=== PATIENT | male | born 1955 | race Two or more races ===

== ENCOUNTER 2017-05-09 19:44 | Emergency (ER) | payer OTHER ==
[~2017-05-09] VITALS: Ht 182.9 cm; Wt 104.3 kg
[~2017-05-09 19:44] MED LIST: ABILIFY5 MG; ALLOPURINOL100 MG PO; AMOXICILLIN875 MG PO; ASPIRIN EC81 MG PO; AUGMENTIN 875-1 EACH PO; CLONAZEPAM0.5 MG PO; COLCRYS0.6 MG PO; GLIPIZIDE XL10 MG PO; LANTUS100 UNIT/1 SUB-Q; LISINOPRIL10 MG PO; METFORMIN HCL1000 MG PO; NORCO 7.5-3251 EACH PO; OMEPRAZOLE20 MG PO; PREDNISONE10 MG PO; PSEUDOEPHEDRINE30 MG PO; VENLAFAXINE HC150 MG PO; VENLAFAXINE HCL75 M2 PO; VENTOLIN HFA18 GM INH; ZOCOR40 MG PO; ZOFRAN ODT4 MG SL
--- NOTE | 2017-05-09 22:44 | EKG ---
[facility] [address] [place], [place] [address] Signed Normal sinus rhythm Incomplete left bundle branch block ST elevation, consider inferolateral injury or acute infarct ACUTE [place] / STEMI Consider right ventricular involvement in acute inferior infarct Abnormal ECG No previous ECGs available Confirmed by MARINO SERRANO MD ([id number]) on 05/09/2017 10:44:02 PM Electronically Signed By: MARINO SERRANO MD 05/09/17 [id number] PATIENT NAME: BALDO WILDER Electrocardiogram DATE OF : 59 PHYSICIAN: MARINO SERRANO MD REPORT #: [id number] REPORT IS CONFIDENTIAL AND NOT TO BE RELEASED WITHOUT AUTHORIZATION
== END 2017-05-09 20:25 | disposition short-term general hospital (02) ==
LOC: ED 19:44
DX: I21.19 ST elevation (STEMI) myocardial infarction involving other coronary artery of inferior wall (principal); I10 Essential (primary) hypertension; K21.9 Gastro-esophageal reflux disease without esophagitis; E11.9 Type 2 diabetes mellitus without complications; Z79.1 Long term (current) use of non-steroidal anti-inflammatories (NSAID); Z79.82 Long term (current) use of aspirin; Z79.899 Other long term (current) drug therapy
CPT/HCPCS: 80053; 84484; 85025; 93005; 93010; 96374; 96375; 99285; J1644; J2270; J2405

== ENCOUNTER 2020-02-27 08:53 | Emergency (ER) | payer MEDICARE ==
[~2020-02-27] VITALS: Ht 182.9 cm; Wt 104.3 kg
--- OUTSIDE RECORDS SUMMARY | ~2020-02-27 | XMS | Encounter Summary ---
Demographics + + + | Address | [address] | | | [place] [address] | + + + | Home Phone | | + + + | Preferred Language | Unknown | + + + | Marital Status | | + + + | Mandaen Affiliation | Unknown | + + + | Race | Unknown | + + + | Ethnic Group | Unknown | + + + Author + + + | Author | [facility] | | | and [place] | + + + | Organization | [facility] | | | and [place] | + + + | Address | Unknown | + + + | Phone | Unavailable | + + + Care Team Providers + +------+ + | Care Import/Export Clerk Name | Role | Phone | + +------+ + | Luz Gaitan MD | PCP | | + +------+ + Encounter Details +--------+ + + + + | Date | Type | Department | Care Team | Description | +--------+ + + + + | 05/11/ | Orders Only | [facility] | Conversion | | | 2017 | | CONVERSION [address]P [address] | Transaction, | | | | | [address] | Provider Unknown | | | | | [place], [place] | [phone] | | | | | [phone] | | | | | | [phone] | | | +--------+ + + + + Social History + +-------+ +--------+------+ | Tobacco Use | Types | Packs/Day | Years | Date | | | | | Used | | + +-------+ +--------+------+ | Never Assessed | | | | | + +-------+ +--------+------+ + + + | Sex Assigned at | Date Recorded | | | | + + + | Not on file | | + + + documented as of this encounter Plan of Treatment Not on filedocumented as of this encounter Visit Diagnoses Not on filedocumented in this encounter"
--- OUTSIDE RECORDS SUMMARY | ~2020-02-27 | XMS | Clinical Summary ---
Demographics + + + | Address | [address] | | | [place] [address] | + + + | Home Phone | | + + + | Preferred Language | Unknown | + + + | Marital Status | | + + + | Congregation Affiliation | Unknown | + + + | Race | Unknown | + + + | Ethnic Group | Unknown | + + + Author + + + | Author | [facility] | | | and [place] | + + + | Organization | [facility] | | | and [place] | + + + | Address | Unknown | + + + | Phone | Unavailable | + + + Care Team Providers + +------+ + | Care Top Stop Attacher Name | Role | Phone | + +------+ + | Luz Gaitan MD | PCP | | + +------+ + Allergies No Known Allergies Medications + + + +---------+------+------+-------+ | Medication | Sig | Dispensed | Refills | Star | End | Statu | | | | | | t | Date | s | | | | | | Date | | | + + + +---------+------+------+-------+ | metFORMIN | Take 1,000 mg by | | 0 | 10/2 | | Activ | | (GLUCOPHAGE) 1000 MG | mouth 2 (two) times | | | 0/20 | | e | | tablet | daily with meals. | | | 17 | | | + + + +---------+------+------+-------+ | allopurinol | Take 100 mg by mouth | | 0 | 10/2 | | Activ | | (ZYLOPRIM) 100 mg | daily. | | | 0/20 | | e | | tablet | | | | 17 | | | + + + +---------+------+------+-------+ | lisinopril | Take 10 mg by mouth | | 0 | 10/2 | | Activ | | (PRINIVIL, ZESTRIL) | daily. | | | 0/20 | | e | | 10 mg tablet | | | | 17 | | | + + + +---------+------+------+-------+ | clonazePAM | Take 0.5 mg by mouth | | 0 | 10/2 | | Activ | | (KLONOPIN) 0.5 mg | daily. | | | 0/20 | | e | | tablet | | | | 17 | | | + + + +---------+------+------+-------+ | glipiZIDE | Take 20 mg by mouth | | 0 | 10/2 | | Activ | | (GLUCOTROL XL) 10 mg | 2 (two) times daily. | | | 0/20 | | e | | ER tablet | | | | 17 | | | + + + +---------+------+------+-------+ | omeprazole | Take 20 mg by mouth | | 0 | 10/2 | | Activ | | (PRILOSEC) 20 mg | 2 (two) times daily. | | | 0/20 | | e | | capsule | | | | 17 | | | + + + +---------+------+------+-------+ | venlafaxine | Take 150 mg by mouth | | 0 | 10/2 | | Activ | | (EFFEXOR XR) 150 mg | daily with | | | 0/20 | | e | | 24 hr capsule | breakfast. | | | 17 | | | + + + +---------+------+------+-------+ | venlafaxine | Take 75 mg by mouth | | 0 | 10/2 | | Activ | | (EFFEXOR XR) 75 mg | nightly. | | | 0/20 | | e | | 24 hr capsule | | | | 17 | | | + + + +---------+------+------+-------+ | aspirin 81 MG | Take 325 mg by mouth | | 0 | 10/2 | | Activ | | tablet | daily. | | | 0/20 | | e | | | | | | 17 | | | + + + +---------+------+------+-------+ | insulin glargine | Inject 32 Units into | | 0 | 10/2 | | Activ | | (LANTUS SOLOSTAR) | the skin 2 (two) | | | 0/20 | | e | | 100 units/mL | times daily before | | | 17 | | | | injection (pen) | meals. | | | | | | + + + +---------+------+------+-------+ | colchicine 0.6 mg | Take 0.6 mg by mouth | | 0 | 10/2 | | Activ | | tablet | daily. | | | 0/20 | | e | | | | | | 17 | | | + + + +---------+------+------+-------+ | loperamide | Take 2 mg by mouth 4 | | 0 | 10/2 | | Activ | | (IMODIUM) 2 mg | (four) times daily | | | 6/20 | | e | | capsule | as needed for | | | 17 | | | | | Diarrhea. 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 | 12/25/2017 | | nondalton heart without angina pectoris | | + + + | Palpitation | 12/25/2017 | + + + | Long-term insulin use in type 2 diabetes | 05/10/2017 | + + + | Essential hypertension | 05/10/2017 | + + + | Mixed hyperlipidemia | 05/10/2017 | + + + | S/P drug eluting coronary stent placement | 05/10/2017 | + + + | Hypertriglyceridemia | 05/10/2017 | + + + | Acute ST elevation myocardial infarction (STEMI) of inferior wall | 05/09/2017 | + + + Immunizations + + + + | Name | Administration Dates | Next Due | + + + + | INFLUENZA PF 18 Y OR | 06/23/2013 | | | >,QUADRIVALENT | | | | RECOMBINANT | | | + + + + | INFLUENZA TRIV | 04/04/2011, 08/12/2010, 09/16/2009, | | | W/PRES(PED/ADOL/ADUL | 05/28/2009, 05/12/2008, 06/27/2007, | | | T),MULTIDOSE | 05/23/2006, 05/25/2005, 05/23/2004, | | | | 07/24/1997 | | + + + + | PNEUMOCOCCAL | 03/20/2016, 07/24/1997 | | | POLYSACCHARIDE | | | | 23-VALENT (PPSV23) | | | + + + + | TD PF (5 LF TETANUS) | 07/24/1997 | | | (ADOL/ADULT) | | | + + + + | TDAP, (ADOL/ADULT) | 04/24/2012 | | + + + + Social History + +-------+ +--------+------+ | Tobacco Use | Types | Packs/Day | Years | Date | | | | | Used | | + +-------+ +--------+------+ | Never Smoker | | | | | + +-------+ +--------+------+ + + + | Sex Assigned at | Date Recorded | | | | + + + | Not on file | | + + + Last Filed Vital Signs + + + + + | Vital Sign | Reading | Time Taken | Comments | + + + + + | Blood Pressure | 128/75 | 12/25/2017 11:13 AM | | | | | PDT | | + + + + + | Pulse | 67 | 12/25/2017 11:13 AM | | | | | PDT | | + + + + + | Temperature | 36.7 C (98.1 F) | 05/11/2017 3:58 PM | | | | | PDT | | + + + + + | Respiratory Rate | 18 | 12/25/2017 11:13 AM | | | | | PDT | | + + + + + | Oxygen Saturation | - | - | | + + + + + | Inhaled Oxygen | - | - | | | Concentration | | | | + + + + + | Weight | 109.3 kg (241 lb) | 12/25/2017 11:13 AM | | | | | PDT | | + + + + + | Height | 182.9 cm (6') | 12/25/2017 11:13 AM | | | | | PDT | | + + + + + | Body Mass Index | 32.69 | 12/25/2017 11:13 AM | | | | | PDT | | + + + + + Plan of Treatment + + + + + | Health Maintenance | Due Date | Last | Comments | | | | Done | | + + + + + | Vaccine: Zoster (1 | | | | | of 2) | 7 | | | + + + + + | Vaccine: Influenza | | 06/23/20 | | | (#1) | 0 | 13, | | | | | 04/04/20 | | | | | 11, | | | | | 08/12/19 | | | | | 11, | | | | | Addition | | | | | al | | | | | history | | | | | exists | | + + + + + | Vaccine: | | 04/24/20 | | | Dtap/Tdap/Td (2 - | 2 | 12, | | | Td) | | 07/24/18 | | | | | 98 | | + + + + + Results Not on filefrom Last 3 Months"
--- OUTSIDE RECORDS SUMMARY | ~2020-02-27 | XMS | Encounter Summary ---
Demographics + + + | Address | [address] | | | [place] [address] | + + + | Home Phone | | + + + | Preferred Language | Unknown | + + + | Marital Status | | + + + | Mosque Affiliation | Unknown | + + + | Race | Unknown | + + + | Ethnic Group | Unknown | + + + Author + + + | Author | [facility] | | | and [place] | + + + | Organization | [facility] | | | and [place] | + + + | Address | Unknown | + + + | Phone | Unavailable | + + + Care Team Providers + +------+ + | Care Shift Production Supervisor Name | Role | Phone | + +------+ + PCP | Unavailable | + +------+ + Encounter Details +--------+ + + + + | Date | Type | Department | Care Team | Description | +--------+ + + + + | 11/29/ | Hospital | [facility] | Luz Gaitan | | | 2017 | Encounter | [facility] [address] | [address] | | | | | [address] | [employer] | | | | | [place] | [place] [facility] [place] | | | | | [address] | [address] | | | | | [phone] | | | +--------+ + + + [...] + + documented as of this encounter Progress Notes Manuela Coker - 11/29/2016 9:21 AM PDT PROCEDURE REPORT DATE OF PROCEDURE: 11/29/2016. ORDERING PHYSICIAN Luz Gaitan MD. DESCRIPTION OF PROCEDURE: Exercise stress test was performed utilizing the Pepe protocol. The patient exercised for 4 minutes 57 seconds achieving a maximum heart rate of 160 BPM, which represents 99% of max imum predicted heart rate. 7.0 METS were utilized at highest workload performed. Resting blood pressure 143/80 mmHg at peak exercise blood pressure increased to 250/112 mmH g. Resting heart rate 75 BPM. Resting electrocardiogram revealed normal sinus rhythm with evidence of left ventricular hy pertrophy. T-wave inversion in lateral leads and inferior leads. With exercise blood press ure increased to 250/112 mmHg, heart rate 160 BPM. Exercise EKG revealed sinus tachycardia with persistent ST depression and T-wave inversion in inferolate ral leads, unchanged from baseline nondiagnostic of ischemia due to baseline EKG changes the re are frequent episodes of premature ventricular beats and short run of nonsustained ventricular tachycardia, three beats suggestive of stress-induced ischemia. During the recovery phase, blood pressure decreased to 136/65 mmHg. Heart rate 108 BPM. E KG returned to baseline. The patient experienced no chest pain at peak exercise. CONCLUSION: 1. Poor functional aerobic capacity. Accelerated hypertension response to exercise. 2. Stage I resting hypertension. 3. Stress EKG nondiagnostic of ischemia due to baseline EKG changes. Nonsustained ventricu lar tachycardia at peak exercise suggestive of ischemia. 4. No chest pain induced by exercise. Myocardial perfusion image to follow. [facility] Signed and Approved by: MANUELA COKER MD 11/30/2016 16:43:00 documented in this encounter Plan of Treatment Not on filedocumented as of this encounter Procedures + +--------+ + + + | Procedure Name | Priori | Date/Time | Associated Diagnosis | Comments | | | ty | | | | + +--------+ + + + | NM MYOCARDIAL | Routin | 11/29/2016 | | Results for this | | PERFUSION MULT SPECT | e | 9:21 AM | | procedure are in the | | | | PDT | | results section. | + +--------+ + + + documented in this encounter Results NM Myocardial Perfusion Mult SPECT (11/29/2016 9:21 AM PDT) + + | Specimen | + + | | + + + + + | Narrative | Performed At | + + + | EXAMINATION: NM MYOCAR PERF SPECT MULTI STUDY HISTORY: | | | atypical cp, abn ekg COMPARISON STUDY: None TECHNIQUE: Pepe | | | protocol is performed and the patient achieved 85% maximal predicted | | | heart rate. Rest and stress phase imaging utilized 9.1 and 25.5 | | | millicuries technetium 99-M Myoview. FINDINGS: Cardiac wall | | | motion is normal.. The left ventricular ejection fraction is | | | calculated at 62%. The left ventricular end-diastolic volume measures | | | 72 mL. TID value is normal. Evaluation of radiotracer distribution | | | during stress and rest phase of the study demonstrates small a | | | reversible defect of the inferolateral base. IMPRESSION: 1. | | | Inferior lateral reversible defect at the base suggest reversible | | | ischemia. 2. Left ventricular ejection fraction is calculated at 62% | | | 3. The results of the study, were given to clerical staff to | | | communicate to the ordering clinician at the time of dictation. | | | JOB #: [id number] Digitally Released by: Miladys Escoto Read By: | | | MILADYS ESCOTO MD Date: 11/29/2016 12:59 | | + + + + + | Procedure Note | + + | Tr[place], Rad Results In - 08/02/2017 12:26 PM PST EXAMINATION: | | NM MYOCAR PERF SPECT MULTI STUDY | | | | HISTORY: | | atypical cp, abn ekg | | | | COMPARISON STUDY: | | None | | | | TECHNIQUE: | | Pepe protocol is performed and the patient achieved 85% maximal predicted | | heart rate. Rest and stress phase imaging utilized 9.1 and 25.5 millicuries | | technetium 99-M Myoview. | | | | FINDINGS: | | Cardiac wall motion is normal.. | | The left ventricular ejection fraction is calculated at 62%. | | The left ventricular end-diastolic volume measures 72 mL. | | TID value is normal. | | Evaluation of radiotracer distribution during stress and rest phase of the | | study demonstrates small a reversible defect of the inferolateral base. | | | | IMPRESSION: | | | | 1. Inferior lateral reversible defect at the base suggest reversible ischemia. | | 2. Left ventricular ejection fraction is calculated at 62% | | 3. The results of the study, were given to clerical staff to communicate to | | the ordering clinician at the time of dictation. | | | | | | JOB #: [id number] | | Digitally Released by: Miladys Escoto | | | | | | Read By: MILADYS ESCOTO MD | | Date: 11/29/2016 12:59 | | | + + documented in this encounter Visit Diagnoses Not on filedocumented in this encounter"
--- OUTSIDE RECORDS SUMMARY | ~2020-02-27 | XMS | Encounter Summary ---
Demographics + + + | Address | [address] | | | [place] [address] | + + + | Home Phone | | + + + | Preferred Language | Unknown | + + + | Marital Status | | + + + | Faith Affiliation | Unknown | + + + | Race | Unknown | + + + | Ethnic Group | Unknown | + + + Author + + + | Author | [facility] | | | and [place] | + + + | Organization | [facility] | | | and [place] | + + + | Address | Unknown | + + + | Phone | Unavailable | + + + Care Team Providers + +------+ + | Care Operational Trainer Name | Role | Phone | + +------+ + PCP | Unavailable | + +------+ + Encounter Details +--------+ + + + + | Date | Type | Department | Care Team | Description | +--------+ + + + + | 09/16/ | Hospital | [facility] | Neftaly Rankin, | | | 2011 | Encounter | [facility] | [place] [address] | | | | | [place] [address] | [place] | | | | | [place] | [id number] | | | | | [id number] | | | | | | [phone] | | | +--------+ + + + [...] + + documented as of this encounter ED Notes Neftaly Rankin MD - 09/16/2011 1:26 PM PSTDATE: 09/16/2011 CHIEF COMPLAINT: Chest pain and cough. HISTORY OF PRESENT ILLNESS: Yassine is a 56-year-old male who said he has had a bad cough fo r the last couple weeks that has been gradually getting worse. He has been having a lot of rib pain with it. He said he has had a little bit of shortness of breath. No nausea, no vom iting. No diarrhea or associat ed symptoms. However, he cannot stop coughing and he has dev eloped this kind of right midaxillary tray n, as well as some left-sided pain. It seems to b e getting worse. It has not been going away, so he c clay to the emergency department for fu rther evaluation. He has had no fever. He is coughing up purule nt material. He has had no chest pain or chest pressure. He said it is sometimes abdominal pain as we ll. PAST MEDICAL HISTORY: Significant for diabetes and hypertension. SOCIAL HISTORY: Does not smoke. REVIEW OF SYSTEMS: All systems reviewed and were negative except as in the HPI. PHYSICAL EXAMINATION GENERAL: Shows a 56-year-old male in no apparent distress. VITAL SIGNS: BP 154/77, pulse 78, respirations 16, temperature 98.8. Saturating 98% on room air. HEENT: Pupils equally round and reactive to light. Mucous membranes are moist. His nasal pa ssages are clear. NECK: Trachea is midline. CHEST: He has some crackles bilaterally in the lower lobes, which are very mild. Otherwise, his lungs are clear to auscultation bilaterally. No rales, no wheezes. CARDIOVASCULAR: Rate and rhythm are regular. ABDOMEN: Nontender, nondistended. EXTREMITIES: No edema. SKIN: No rash. EMERGENCY DEPARTMENT COURSE AND STUDIES: He had a CBC which was normal. Comprehensive metab olic panel was normal. A urine dip was negative. D-dimer was normal. He had an acute abdomi nal series which was normal. He continued to complain of pain. Therefore, an abdominal/pelv ic CT was done. The CT ended u p looking okay except he has a left lower lobe interstitial alveolar infiltrate compatible with pneum onia. ASSESSMENT: A 56-year-old male with pneumonia. He was given a prescription for some Levaqui n and Norc o. He was told to come back if he gets worse. Otherwise, to follow up with his [facility] doctor. DICTATED BY: Neftaly Rankin M.D. Emergency Medicine JOB #: [id number] EXT JOB #:[id number] EDITED: 09/18/2011 15:38 <Electronically Signed by Neftaly Rankin MD> 09/20/11 1404 documented in this encounter Plan of Treatment Not on filedocumented as of this encounter Procedures + +--------+ + + + | Procedure Name | Priori | Date/Time | Associated Diagnosis | Comments | | | ty | | | | + +--------+ + + + | D-DIMER | Routin | 09/16/2011 | | Results for this | | | e | 3:21 PM | | procedure are in the | | | | PST | | results section. | + +--------+ + + + | CHEMISTRY INDEX | Routin | 09/16/2011 | | Results for this | | | e | 2:30 PM | | procedure are in the | | | | PST | | results section. | + +--------+ + + + | CBC WITH | Routin | 09/16/2011 | | Results for this | | DIFFERENTIAL | e | 2:30 PM | | procedure are in the | | | | PST | | results section. | + +--------+ + + + | COMPREHENSIVE | Routin | 09/16/2011 | | Results for this | | METABOLIC PANEL | e | 2:30 PM | | procedure are in the | | | | PST | | results section. | + +--------+ + + + | XR ABDOMEN AP | | 09/16/2011 | | Results for this | | UPRIGHT KUB AND PA | | 1:26 PM | | procedure are in the | | CHEST | | PST | | results section. | + +--------+ + + + | CT ABDOMEN PELVIS W | | 09/16/2011 | | Results for this | | CONTRAST | | 1:26 PM | | procedure are in the | | | | PST | | results section. | + +--------+ + + + documented in this encounter Results D-Dimer (09/16/2011 3:21 PM PST) + + + + + + | Component | Value | Ref Range | Performed | Pathologist | | | | | At | Signature | + + + + + + | D-DIMER, | 0.24Comment: This | <0.50 ug/mlFEU | [facility] | | | QUANTITATIV | quantitative D-Dimer | | [facility] | | | E | assay has been evaluated | | MEDICAL | | | | for screening for | | CENTER - | | | | venous thrombotic | | LABORATORY | | | | disease, and may be | | | | | | useful in ruling out, | | | | | | but not ruling in | | | | | | disease. Values less | | | | | | than 0.50 ug/mL FEU | | | | | | (Fibrinogen Equivalent | | | | | | Units) have a negative | | | | | | predictive value of | | | | | | approximately 95% for | | | | | | ruling out large | | | | | | pulmonary emboli or | | | | | | proximal deep vein | | | | | | thrombosis. Distal DVT | | | | | | are not excluded. An | | | | | | elevated D-dimer can be | | | | | | present in patients | | | | | | with liver disease, | | | | | | , eclampsia, | | | | | | heart disease and some | | | | | | cancers among other | | | | | | conditions. The | | | | | | presence of rheumatoid | | | | | | factor at a level >50 | | | | | | IU/mL may falsely | | | | | | elevate the determined | | | | | | D-dimer levels. | | | | + + + + + + + + | Specimen | + + | | + + + + + + + | Performing | Address | City/State/Zipcode | Phone Number | | Organization | | | | + + + + + | [facility] | [address] | [place], [place] | [phone] | | [facility] | | [address] | | | - LABORATORY | | | | + + + + + | [facility] | [address] | [place], [place] | | | [facility] | | [address], [facility] | | | - LABORATORY | | | | + + + + + Chemistry Index (09/16/2011 2:30 PM PST) + + + + + + | Component | Value | Ref Range | Performed | Pathologist | | | | | At | Signature | + + + + + + | HEMOLYSIS | 1+Comment: AMYLASE, | | [facility] | | | INDEX | AMMONIA, CPK, IRON, K+, | | [facility] | | | | LDH, SGOT/AST, SGPT/ALT, | | MEDICAL | | | | and TOTAL BILIRUBIN | | CENTER - | | | | may be adversely | | LABORATORY | | | | affected by 1+ | | | | | | hemolysis. | | | | + + + + + + | LIPEMIA | 2+Comment: AMMONIA, | | [facility] | | | INDEX | LACTIC ACID, TOTAL | | [facility] | | | | PROTEIN and MAGNESIUM | | MEDICAL | | | | may be adversely | | CENTER - | | | | affected by 2+ lipemia. | | LABORATORY | | | | | | | | + + + + + + | ICTERIC | 1+Comment: LACTIC ACID | | [facility] | | | INDEX | and TRIGLYCERIDES may be | | [facility] | | | | adversely affected by | | MEDICAL | | | | 1+ bilirubin. | | CENTER - | | | | | | LABORATORY | | + + + + + + + + | Specimen | + + | | + + + + + + + | Performing | Address | City/State/Zipcode | Phone Number | | Organization | | | | + + + + + | [facility] | [address] | [place] | [phone] | | [facility] | | [address] | | | - LABORATORY | | | | + + + + + | [facility] | [address] | [place], [place] | | | [facility] | | [address] | | | - LABORATORY | | | | + + + + + Comprehensive Metabolic Panel (09/16/2011 2:30 PM PST) + + + + + + | Component | Value | Ref Range | Performed | Pathologist | | | | | At | Signature | + + + + + + | Glucose | 226 (H) | 70 - 109 mg/dL | [facility] | | | | | | [facility] | | | | | | MEDICAL | | | | | | CENTER - | | | | | | LABORATORY | | + + + + + + | Calcium | 9.3 | 8.3 - 10.5 | [facility] | | | | | mg/dL | [facility] | | | | | | MEDICAL | | | | | | CENTER - | | | | | | LABORATORY | | + + + + + + | Alkaline | 67 | 40 - 110 IU/L | [facility] | | | Phosphatase | | | [facility] | | | | | | MEDICAL | | | | | | CENTER - | | | | | | LABORATORY | | + + + + + + | AST | 53 (H) | 10 - 42 IU/L | [facility] | | | | | | [facility] | | | | | | MEDICAL | | | | | | CENTER - | | | | | | LABORATORY | | + + + + + + | ALT | 65 (H) | 6 - 45 IU/L | [facility] | | | | | | [facility] | | | | | | MEDICAL | | | | | | CENTER - | | | | | | LABORATORY | | + + + + + + | Bilirubin | 0.9 | 0.2 - 1.0 mg/dL | [facility] | | | Total | | | [facility] | | | | | | MEDICAL | | | | | | CENTER - | | | | | | LABORATORY | | + + + + + + | Total | 7.4 | 6.0 - 7.8 gm/dL | [facility] | | | Protein | | | [facility] | | | | | | MEDICAL | | | | | | CENTER - | | | | | | LABORATORY | | + + + + + + | Albumin | 4.1 | 3.2 - 5.0 gm/dL | [facility] | | | | | | [facility] | | | | | | MEDICAL | | | | | | CENTER - | | | | | | LABORATORY | | + + + + + + | BUN | 12 | 7 - 18 mg/dL | [facility] | | | | | | [facility] | | | | | | MEDICAL | | | | | | CENTER - | | | | | | LABORATORY | | + + + + + + | Creatinine | 0.96 | 0.60 - 1.30 | [facility] | | | | | mg/dL | [facility] | | | | | | MEDICAL | | | | | | CENTER - | | | | | | LABORATORY | | + + + + + + | Estimated | >60Comment: For | >60 mL/min/A | [facility] | | | GFR | -Americans, | | [facility] | | | | please multiply the | | MEDICAL | | | | result by 1.210 | | CENTER - | | | | This is an estimated | | LABORATORY | | | | GFR and is based on a | | | | | | standard adult | | | | | | body mass (A=1.73m2) and | | | | | | serum creatinine | | | | + + + + + + | BUN/Creatin | 12.5 | 12 - 20 | [facility] | | | ine Ratio | | | [facility] | | | | | | MEDICAL | | | | | | CENTER - | | | | | | LABORATORY | | + + + + + + | Na | 134 (L) | 136 - 149 mEq/L | [facility] | | | | | | [facility] | | | | | | MEDICAL | | | | | | CENTER - | | | | | | LABORATORY | | + + + + + + | K | 4.2 | 3.5 - 5.1 mEq/l | [facility] | | | | | | [facility] | | | | | | MEDICAL | | | | | | CENTER - | | | | | | LABORATORY | | + + + + + + | Cl | 100 | 98 - 109 mEq/l | [facility] | | | | | | [facility] | | | | | | MEDICAL | | | | | | CENTER - | | | | | | LABORATORY | | + + + + + + | CO2 | 25 | 24 - 31 mEq/L | [facility] | | | | | | [facility] | | | | | | MEDICAL | | | | | | CENTER - | | | | | | LABORATORY | | + + + + + + | Anion Gap | 13.2 | 6.0 - 17.0 | [facility] | | | | | | [facility] | | | | | | MEDICAL | | | | | | CENTER - | | | | | | LABORATORY | | + + + + + + + + | Specimen | + + | | + + + + + + + | Performing | Address | City/State/Zipcode | Phone Number | | Organization | | | | + + + + + | [facility] | [address] | [place] | [phone] | | [facility] | | [address] | | | - LABORATORY | | | | + + + + + | [facility] | [address] | [place], [place] | | | [facility] | | [address] | | | - LABORATORY | | | | + + + + + CBC with Differential (09/16/2011 2:30 PM PST) + +---------+ + + + | Component | Value | Ref Range | Performed | Pathologist | | | | | At | Signature | + +---------+ + + + | White Blood | 7.5 | 4.0 - 11.0 K/uL | [facility] | | | Cells | | | [facility] | | | | | | MEDICAL | | | | | | CENTER - | | | | | | LABORATORY | | + +---------+ + + + | Red Blood | 5.32 | 4.30 - 5.70 | [facility] | | | Cells | | M/uL | [facility] | | | | | | MEDICAL | | | | | | CENTER - | | | | | | LABORATORY | | + +---------+ + + + | Hemoglobin | 15.6 | 13.5 - 18.0 | [facility] | | | | | gm/dL | [facility] | | | | | | MEDICAL | | | | | | CENTER - | | | | | | LABORATORY | | + +---------+ + + + | Hematocrit | 46.4 | 40.0 - 51.0 % | [facility] | | | | | | [facility] | | | | | | MEDICAL | | | | | | CENTER - | | | | | | LABORATORY | | + +---------+ + + + | MCV | 87.2 | 83.0 - 101.0 fL | [facility] | | | | | | [facility] | | | | | | MEDICAL | | | | | | CENTER - | | | | | | LABORATORY | | + +---------+ + + + | MCH | 29.3 | 28.0 - 35.0 pg | [facility] | | | | | | [facility] | | | | | | MEDICAL | | | | | | CENTER - | | | | | | LABORATORY | | + +---------+ + + + | MCHC | 33.7 | 32.0 - 36.0 | [facility] | | | | | g/dL | [facility] | | | | | | MEDICAL | | | | | | CENTER - | | | | | | LABORATORY | | + +---------+ + + + | RDW-CV | 12.4 | <15.0 % | [facility] | | | | | | [facility] | | | | | | MEDICAL | | | | | | CENTER - | | | | | | LABORATORY | | + +---------+ + + + | Platelet | 181 | 140 - 440 K/uL | [facility] | | | Count | | | [facility] | | | | | | MEDICAL | | | | | | CENTER - | | | | | | LABORATORY | | + +---------+ + + + | % | 48.9 | 45 - 75 % | [facility] | | | Neutrophils | | | [facility] | | | | | | MEDICAL | | | | | | CENTER - | | | | | | LABORATORY | | + +---------+ + + + | % | 39.0 | 20 - 45 % | [facility] | | | Lymphocytes | | | [facility] | | | | | | MEDICAL | | | | | | CENTER - | | | | | | LABORATORY | | + +---------+ + + + | % Monocytes | 5.9 | 4 - 12 % | [facility] | | | | | | [facility] | | | | | | MEDICAL | | | | | | CENTER - | | | | | | LABORATORY | | + +---------+ + + + | % | 5.0 | 0 - 5 % | [facility] | | | Eosinophils | | | [facility] | | | | | | MEDICAL | | | | | | CENTER - | | | | | | LABORATORY | | + +---------+ + + + | % Basophils | 1.2 (H) | 0 - 1 % | [facility] | | | | | | [facility] | | | | | | MEDICAL | | | | | | CENTER - | | | | | | LABORATORY | | + +---------+ + + + | Absolute | 3.7 | 1.5 - 6.6 K/uL | [facility] | | | Neutrophils | | | [facility] | | | | | | MEDICAL | | | | | | CENTER - | | | | | | LABORATORY | | + +---------+ + + + | Absolute | 2.9 | 0.6 - 3.2 K/uL | [facility] | | | Lymphocytes | | | [facility] | | | | | | MEDICAL | | | | | | CENTER - | | | | | | LABORATORY | | + +---------+ + + + | Absolute | 0.4 | 0.0 - 1.0 K/uL | [facility] | | | Monocytes | | | [facility] | | | | | | MEDICAL | | | | | | CENTER - | | | | | | LABORATORY | | + +---------+ + + + | Absolute | 0.4 | 0.0 - 0.4 K/uL | [facility] | | | Eosinophils | | | [facility] | | | | | | MEDICAL | | | | | | CENTER - | | | | | | LABORATORY | | + +---------+ + + + | Absolute | 0.1 | 0.0 - 0.1 K/uL | [facility] | | | Basophils | | | [facility] | | | | | | MEDICAL | | | | | | CENTER - | | | | | | LABORATORY | | + +---------+ + + + + + | Specimen | + + | | + + + + + + + | Performing | Address | City/State/Zipcode | Phone Number | | Organization | | | | + + + + + | [facility] | [address] | [place], [place] | [phone] | | [facility] | | [address] | | | - LABORATORY | | | | + + + + + | [facility] | [address] | [place], [place] | | | [facility] | | [address], [facility] | | | - LABORATORY | | | | + + + + + XR Abd Supine and Upright w 1 Vw Chest (09/16/2011 1:26 PM PST) + + | Specimen | + + | | + + + + + | Narrative | Performed At | + + + | [facility] Diagnostic Imaging Department | [facility] | | [address] [facility] | [facility] | | TWO VIEW ABDOMEN WITH UPRIGHT | DIAG IMG | | CHEST CLINICAL HISTORY: RIB PAIN. FINDINGS: Heart size is | | | normal. Hilar regions and pulmonary vasculature are normal. No areas | | | of abno rmal lung density are seen. Intestinal gas and stool | | | pattern is normal. There is no sign of obstruction or free air. No | | | abnormal calcifications or bony abnormalities are present. | | | IMPRESSION: 1. NEGATIVE STUDY OF THE CHEST AND ABDOMEN. Dictated | | | Date/Time: 09/17/2011 12:30 Transcribed Date/Time: 09/17/2011 | | | 15:07 Automobile Service Station Manager: <Electronically Signed by Kennedy Millard | | | MD Wade> 09/17/11 8889 | | + + + + + | Procedure Note | + + | Triston, Rad Conversion - 08/29/2013 4:49 PM [facility] | | Diagnostic Imaging Department [address] [facility] | | TWO VIEW ABDOMEN WITH UPRIGHT CHEST CLINICAL HISTORY: | | RIB PAIN. FINDINGS: Heart size is normal. Hilar regions and pulmonary vasculature are | | normal. No areas of abnormal lung density are seen. Intestinal gas and stool pattern is | | normal. There is no sign of obstruction or free air. No abnormal calcifications or bony | | abnormalities are present. IMPRESSION: 1. NEGATIVE STUDY OF THE CHEST AND ABDOMEN. | | Dictated Date/Time: 09/17/2011 12:30Transcribed Date/Time: 09/17/2011 | | 15:07Transcriptionist: <Electronically Signed by Kennedy Olvera MD> 09/17/11 | | 2304 | |FINDINGS: Heart size is normal. Hilar regions and pulmonary vasculature are normal. No are as of abno | |rmal lung density are seen. | | | |Intestinal gas and stool pattern is normal. There is no sign of obstruction or free air. No abnormal | |calcifications or bony abnormalities are present. | | | |IMPRESSION: | |1. NEGATIVE STUDY OF THE CHEST AND ABDOMEN. | | | |Dictated Date/Time: 09/17/2011 12:30 | |Transcribed Date/Time: 09/17/2011 15:07 | |Automobile Service Station Manager: | |<Electronically Signed by Kennedy Olvera MD> 09/17/11 2304 | + + + +---------+ + + | Performing | Address | City/State/Zipcode | Phone Number | | Organization | | | | + +---------+ + + | [place] [facility] | | | | | [facility] | | | | + +---------+ + + CT Abdomen Pelvis w Contrast (09/16/2011 1:26 PM PST) + + | Specimen | + + | | + + + + + | Narrative | Performed At | + + + | [facility] Diagnostic Imaging Department | [facility] | | [address] [facility] | [facility] | | CT ABDOMEN AND PELVIS | DIAG IMG | | CLINICAL HISTORY: ABDOMINAL AND RIB PAIN. TECHNIQUE: Axial | | | images are obtained from lung bases to ischial tuberosities during the | | | uneventful a dministration of 100 mL of Isovue 370. No oral | | | contrast is used. FINDINGS: Patchy airspace density is seen in | | | the posterior left lower lobe. This is asymmetric from the right, | | | and without appearances suggesting infiltrative dislocation. | | | Liver shows normal appearances for a contrast-enhanced scan. | | | Gallbladder, pancreas, spleen and adren al glands appear normal. | | | Kidneys enhance symmetrically. There is no renal mass. No stones | | | are seen . Collecting systems are normal. Aorta and inferior | | | vena cava are normal. No retroperitoneal adeno reji or mass is | | | seen. The bowel is of normal caliber throughout. A normal appendix | | | is seen. Small bowel is unremarkable. In the pelvis, prostate | | | appears normal. Urinary bladder is unremarkable. Posterior facet | | | degenerati ve changes are seen in the lower lumbar region with no | | | acute bony abnormality. IMPRESSION: 1. LEFT LOWER LOBE | | | PNEUMONIC INFILTRATE. 2. OTHERWISE NEGATIVE CT OF THE ABDOMEN | | | AND PELVIS. Dictated Date/Time: 09/17/2011 11:04 Transcribed | | | Date/Time: 09/17/2011 11:27 Automobile Service Station Manager: | | | <Electronically Signed by Kennedy Olvera MD> 09/17/11 2304 | | + + + + + | Procedure Note | + + | Triston, Rad Conversion - 08/29/2013 4:48 PM [facility] | | Diagnostic Imaging Department [address] [place] [address] | | CT ABDOMEN AND PELVIS CLINICAL HISTORY: ABDOMINAL AND | | RIB PAIN. TECHNIQUE: Axial images are obtained from lung bases to ischial tuberosities | | during the uneventful administration of 100 mL of Isovue 370. No oral contrast is used. | | FINDINGS: Patchy airspace density is seen in the posterior left lower lobe. This is | | asymmetric from the right, and without appearances suggesting infiltrative dislocation. | | Liver shows normal appearances for a contrast-enhanced scan. Gallbladder, pancreas, | | spleen and adrenal glands appear normal. Kidneys enhance symmetrically. There is no | | renal mass. No stones are seen. Collecting systems are normal. Aorta and inferior | | vena cava are normal. No retroperitoneal adenopathy or mass is seen. The bowel is of | | normal caliber throughout. A normal appendix is seen. Small bowel is unremarkable. In | | the pelvis, prostate appears normal. Urinary bladder is unremarkable. Posterior facet | | degenerative changes are seen in the lower lumbar region with no acute bony abnormality. | | IMPRESSION: 1. LEFT LOWER LOBE PNEUMONIC INFILTRATE. 2. OTHERWISE NEGATIVE CT OF THE | | ABDOMEN AND PELVIS. Dictated Date/Time: 09/17/2011 11:04Transcribed Date/Time: | | 09/17/2011 11:27Transcriptionist: <Electronically Signed by Kennedy Olvera MD> | | 09/17/11 2304 | |. Collecting systems are normal. Aorta and inferior vena cava are normal. No retroperito eric adeno | |reji or mass is seen. The bowel is of normal caliber throughout. A normal appendix is se en. Small | | bowel is unremarkable. | | | |In the pelvis, prostate appears normal. Urinary bladder is unremarkable. Posterior facet degenerati | |ve changes are seen in the lower lumbar region with no acute bony abnormality. | | | |IMPRESSION: | |1. LEFT LOWER LOBE PNEUMONIC INFILTRATE. | | | |2. OTHERWISE NEGATIVE CT OF THE ABDOMEN AND PELVIS. | | | |Dictated Date/Time: 09/17/2011 11:04 | |Transcribed Date/Time: 09/17/2011 11:27 | |Automobile Service Station Manager: | |<Electronically Signed by eKnnedy Olvera MD> 09/17/11 2304 | + + + +---------+ + + | Performing | Address | City/State/Zipcode | Phone Number | | Organization | | | | + +---------+ + + | [facility] | | | | | [facility] | | | | + +---------+ + + documented in this encounter Visit Diagnoses Not on filedocumented in this encounter"
--- OUTSIDE RECORDS SUMMARY | ~2020-02-27 | XMS | Encounter Summary ---
Demographics + + + | Address | [address] | | | [place] [address] | + + + | Home Phone | | + + + | Preferred Language | Unknown | + + + | Marital Status | | + + + | Zoroastrian Affiliation | Unknown | + + + | Race | Unknown | + + + | Ethnic Group | Unknown | + + + Author + + + | Author | [facility] | | | and Yohannesana | + + + | Organization | [facility] | | | and [place]ann[place] | + + + | Address | Unknown | + + + | Phone | Unavailable | + + + Care Team Providers + +------+ + | Care Channel Installer Name | Role | Phone | + +------+ + PCP | Unavailable | + +------+ + Encounter Details +--------+ + + + + | Date | Type | Department | Care Team | Description | +--------+ + + + + | 05/09/ | Hospital | [facility] | Behzad Samuel | | | 2017 - | Encounter | [facility] | MD Carmen [address] | | | | | CARE [address]LO[address] [place], [place] | | | 05/11/ | | [facility] | [id number] | | | 2016 | | [place], [place] | | | | | | [address] | | | | | | [phone] | | | +--------+ + + + [...] + + documented as of this encounter Last Filed Vital Signs + + + + + | Vital Sign | Reading | Time Taken | Comments | + + + + + | Blood Pressure | 123/69 | 05/11/2017 3:58 PM | | | | | PDT | | + + + + + | Pulse | 61 | 05/11/2017 3:58 PM | | | | | PDT | | + + + + + | Temperature | 36.7 C (98.1 F) | 05/11/2017 3:58 PM | | | | | PDT | | + + + + + | Respiratory Rate | 16 | 05/11/2017 3:58 PM | | | | | PDT | | + + + + + | Oxygen Saturation | - | - | | + + + + + | Inhaled Oxygen | - | - | | | Concentration | | | | + + + + + | Weight | 109.8 kg (242 lb 1.1 | 05/11/2017 3:58 PM | | | | oz) | PDT | | + + + + + | Height | 182.9 cm (6') | 05/11/2017 3:58 PM | | | | | PDT | | + + + + + | Body Mass Index | 32.83 | 05/11/2017 3:58 PM | | | | | PDT | | + + + + + documented in this encounter Discharge Summaries Behzad Samuel MD - 05/11/2017 6:57 PM PDTFormatting of this note might be diffe rent from the original. Discharge Summaries by Behzad Samuel MD at 05/11/171856 Author: Behzad Samuel MD Service: Cardiology Author Type: Physician Filed: 05/17/172012 Date of Service: 05/11/171856 Status: Signed Associate Justice: Behzad Samuel MD (Physician) Related Notes: Original Note by Behzad Samuel MD (Physician) filed at 05/11/171920 [facility] Service: Cardiology Discharge Summary Date of Admission: 05/09/2017 Date of Discharge: 05/11/2017 Discharge Provider: Behzad Samuel MD Treatment Team: Admitting Provider: Behzad Samuel MD Discharge Diagnoses: Active Problems: Acute ST elevation myocardial infarction (STEMI) of inferior wall (HCC) Long-term insulin use in type 2 diabetes (HCC) Essential hypertension Mixed hyperlipidemia S/P drug eluting coronary stent placement Hypertriglyceridemia Resolved Problems: * No resolved hospital problems. * Final Diagnoses: 1. Acute inferior ST elevation myocardial infarction. 2. Single-vessel coronary artery disease with subtotal occlusion of the distal right gutierrez ry artery status post stenting of the distal right coronary artery and proximal right rn icu olateral artery using a 3 x 32 mm Synergy drug-eluting stent May 09, 2017. 3. Mild pulmonary hypertension. 4. Hypertension. 5. Hyperlipidemia. 6. Hypertriglyceridemia. 7. Diabetes mellitus type 2, insulin dependent, uncontrolled. Procedures: Cath 05/09/2017 IMPRESSION 1. Two-vessel coronary artery disease with mild disease of the proximal left anterior descending artery and severe disease of the distal right coronary artery. 2. Successful percutaneous transluminal coronary angioplasty and stenting of the distal right coronary artery and the proximal right posterolateral artery using a 3 x 32 mm Synergy drug-eluting stent, post dilated using a 3 noncompliant balloon. Significant Diagnostic Studies: Echo 05/10/2017 Impression 1. Overall left ventricular systolic function is normal with, an EF between 60 - 65 %. 2. There is mild concentric left ventricular hypertrophy. 3. The right ventricle is mildly enlarged with normal systolic function. 4. The left atrium is moderately dilated. 5. The right atrium is mildly enlarged. 6. Mild mitral regurgitation is present. 7. There is mild pulmonary hypertension. BRIEF HISTORY OF PRESENTATION AND HOSPITAL COURSE: Yassine Wilder is a 62 y.o. male who with a history of hypertension, hyperlipidemia, diabetes mellitus type 2, who was transferred from [facility] with inferior ST elevation myocardial infarction. The patient was taken emergently for cardiac ca theterization which showed single-vessel coronary artery disease with subtotal occlusion of the distal right coronary artery treated with a 3 x 32 mm Synergy drug-eluting stent. His ch est pain had resolved immediately after intervention. He was observed closely. His condition remained stable. His vital signs remained stable. On the day of discharge, he ambulated wit hout symptoms. He denied chest pain, shortness of breath, orthopnea, paroxysmal nocturnal dy spnea, palpitations, lightheadedness, presyncope, or syncope. Echocardiogram showed normal left ventricular systolic function with mild mitral regurgitat ion and mild pulmonary hypertension. His cholesterol panel showed high triglycerides at 702 and low HDL of 24. LDL could not be calculated. Coronary artery disease, inferior ST elevation myocardial infarction, status post stenting of the distal right coronary artery. The patient will need to be on aspirin 81 mg for life. Initially, the patient was started on prasugrel in the hospital. However, on discharge, the patient stated that he take his medications from the [place] pharmacy which will open on Sunday, and it was Sunday evening. Given concerns about getting the prasugrel, I have switched him to Plavix on discharge. I gave him a prescription for Plavix and instructed him to take 4 ta blets on Sunday and then on Sunday, to start taking Plavix 75 mg daily. I warned the patie nt the risk of acute stent thrombosis and even if he skips even 1 day of Plavix. He is agreeable to fill his Plavix tomorrow. The patient was also started on metoprolol, and he was continued on lisinopril. Hypertriglyceridemia/hyperlipidemia/dyslipidemia. The patient was on simvastatin at home at 40 mg. I switched him to atorvastatin 80 mg. Given the high triglycerides, I also started him on fenofibrate. I explained to the patient the risk of muscle pains and muscle weakness, especially with the combination of fenofibra te and atorvastatin; and I advised him to call us immediately if he experienced these sympto ms. He will need a repeat fasting lipid panel and complete metabolic profile in 3 months. The patient will need to be referred for cardiac rehabilitation as an outpatient. We will see the patient in our clinic in 1 week. We advised him to see his primary care [facility] within 1 week. The patient overall discharged home in stable condition. Past medical history Hypertension Hyperlipidemia Diabetes mellitus type II, insulin-dependent Gastroesophageal reflux disease. No past surgical history on file. No Known Allergies Prescriptions Prior to Admission Medication Sig Dispense Refill Last Dose albuterol (PROVENTIL HFA;VENTOLIN HFA) 108 (90 Base) MCG/ACT inhaler Inhale 2 puffs int o the lungs every 6 (six) hours as needed for Wheezing. allopurinol (ZYLOPRIM) 100 MG tablet Take 300 mg by mouth daily. aspirin 81 MG tablet Take 81 mg by mouth daily. clonazePAM (KLONOPIN) 0.5 MG tablet Take 0.5 mg by mouth daily. colchicine 0.6 MG tablet Take 0.6 mg by mouth daily. glipiZIDE (GLUCOTROL) 10 MG 24 hr tablet Take 20 mg by mouth 2 (two) times daily. HYDROcodone-acetaminophen (NORCO) 7.5-325 MG per tablet Take 1-2 tablets by mouth every 6 (six) hours as needed for Pain. insulin glargine (LANTUS) 100 UNIT/ML injection Inject 32 Units into the skin 2 (two) t imes daily before meals. lisinopril (ZESTRIL) 10 MG tablet Take 10 mg by mouth daily. metFORMIN (GLUCOPHAGE) 1000 MG tablet Take 1,000 mg by mouth 2 (two) times daily with m eals. omeprazole (PRILOSEC) 20 MG capsule Take 20 mg by mouth every morning before breakfast. venlafaxine (EFFEXOR-XR) 150 MG 24 hr capsule Take 150 mg by mouth daily with breakfast . venlafaxine (EFFEXOR-XR) 75 MG 24 hr capsule Take 75 mg by mouth nightly. DISCHARGE EXAM Vital Signs: BP 123/69 (BP Location: Right forearm) | Pulse 61 | Temp 98.1 F (36.7 C) (Oral) | Re sp 16 | Ht 1.829 m (6') | Wt 109.8 kg (242 lb 1 oz) | SpO2 100% | BMI 32.83 kg/m Temp: [97.4 F (36.3 C)-98.5 F (36.9 C)] 98.1 F (36.7 C) (05/11 1556) BP: (116-129)/(61-72) 123/69 (05/11 1556) Heart Rate: [61-67] 61 (05/11 1556) Resp: [16-19] 16 (05/11 1556) SpO2: [98 %-100 %] 100 % (05/11 1556) Weight: [109.8 kg (242 lb 1 oz)] 109.8 kg (242 lb 1 oz) (05/11 356) Physical Exam Constitutional: He is oriented to person, place, and time. He appears well-developed and we ll-nourished. No distress. HENT: Head: Normocephalic and atraumatic. Eyes: No scleral icterus. Neck: Neck supple. No JVD present. Carotid bruit is not present. Cardiovascular: Normal rate, regular rhythm, S1 normal and S2 normal. Exam reveals no gall op and no friction rub. No murmur heard. Pulmonary/Chest: Effort normal. No stridor. No respiratory distress. He has no wheezes. He has no rales. He exhibits no tenderness. Abdomina/Gl: Soft. Bowel sounds are normal. There is no tenderness. Musculoskeletal: He exhibits no edema or tenderness. Neurological: He is alert and oriented to person, place, and time. No cranial nerve deficit . Skin: Skin is warm and dry. No rash noted. He is not diaphoretic. No erythema. No pallor. Psychiatric: He has a normal mood and affect. DATA CBC: Lab Results Component Value Date WBC 10.65 05/11/2017 RBC 5.28 05/11/2017 HGB 15.2 05/11/2017 HCT 44.4 05/11/2017 MCV 84.0 05/11/2017 MCH 28.7 05/11/2017 MCHC 34.2 05/11/2017 RDW 41.1 05/11/2017 PLT 132 (L) 05/11/2017 MPV 10.2 05/11/2017 DIFFTYPE AUTOMATED 05/11/2017 Last 3 Troponin: Lab Results Component Value Date TROPONINI 27.7 (HH) 05/10/2017 TROPONINI 32.4 (HH) 05/10/2017 TROPONINI 70 (HH) 05/10/2017 CPK: Lab Results Component Value Date CKTOTAL 514 (H) 05/11/2017 CKMB: Lab Results Component Value Date CKMB 52.8 (H) 05/10/2017 Disposition: Home Condition: Stable Code Status: Full Code No discharge procedures on file. Follow up: Luz Gaitan MD [phone] In 1 week PATTI Johnson [address] [place] [address] In 1 week Medication List START taking these medications atorvastatin 80 MG tablet QTY: 30 tablet Refills: 11 Commonly known as: LIPITOR Take 1 tablet by mouth nightly. * clopidogrel 75 MG tablet QTY: 4 tablet Refills: 0 Commonly known as: PLAVIX Take 4 tablets by mouth once for 1 dose. Start taking on: 05/12/2017 * clopidogrel 75 MG tablet QTY: 30 tablet Refills: 11 Commonly known as: PLAVIX Take 1 tablet by mouth daily. Start taking on: 05/13/2017 fenofibrate 54 MG tablet QTY: 30 tablet Refills: 11 Take 1 tablet by mouth daily. Start taking on: 05/12/2017 metoprolol 25 MG tablet QTY: 30 tablet Refills: 11 Commonly known as: LOPRESSOR Take 0.5 tablets by mouth 2 (two) times daily. nitroGLYCERIN 0.4 MG SL tablet QTY: 90 tablet Refills: 12 Commonly known as: NITROSTAT Place 1 tablet under the tongue every 5 (five) minutes as needed for Chest pain. * This list has 2 medication(s) that are the same as other medications prescribed for you. Read the directions carefully, and ask your doctor or other care provider to review them wit h you. CONTINUE taking these medications albuterol 108 (90 Base) MCG/ACT inhaler Refills: 0 Commonly known as: PROVENTIL HFA;VENTOLIN HFA allopurinol 100 MG tablet Refills: 0 Commonly known as: ZYLOPRIM aspirin 81 MG tablet Refills: 0 clonazePAM 0.5 MG tablet Refills: 0 Commonly known as: KlonoPIN colchicine 0.6 MG tablet Refills: 0 glipiZIDE 10 MG 24 hr tablet Refills: 0 Commonly known as: GLUCOTROL HYDROcodone-acetaminophen 7.5-325 MG per tablet Refills: 0 Commonly known as: NORCO insulin glargine 100 UNIT/ML injection Refills: 0 Commonly known as: LANTUS lisinopril 10 MG tablet Refills: 0 Commonly known as: ZESTRIL metFORMIN 1000 MG tablet Refills: 0 Commonly known as: GLUCOPHAGE omeprazole 20 MG capsule Refills: 0 Commonly known as: PRILOSEC * venlafaxine 150 MG 24 hr capsule Refills: 0 Commonly known as: EFFEXOR-XR * venlafaxine 75 MG 24 hr capsule Refills: 0 Commonly known as: EFFEXOR-XR * This list has 2 medication(s) that are the same as other medications prescribed for you. Read the directions carefully, and ask your doctor or other care provider to review them wit h you. You might also be taking other medications not listed above. If you have questions about an y of your other medications, talk to the person who prescribed them or your Primary Care Pro vider. STOP taking these medications simvastatin 40 MG tablet Commonly known as: ZOCOR Where to Get Your Medications You can get these medications from any pharmacy Bring a paper prescription for each of these medications atorvastatin 80 MG tablet clopidogrel 75 MG tablet clopidogrel 75 MG tablet fenofibrate 54 MG tablet metoprolol 25 MG tablet nitroGLYCERIN 0.4 MG SL tablet Discharge took 40 minutes, to include final examination, discussion of admission, and prepa ration of prescriptions, instructions for on-going care, follow-up and documentation of disc harge summary. Behzad Samuel MD 05/11/2017 documented i n this encounter Medications at Time of Discharge + + + +---------+ + + | Medication | Sig | Dispensed | Refills | Start | End Date | | | | | | Date | | + + + +---------+ + + | allopurinol | Take 100 mg by mouth | | 0 | 05/11/20 | | | (ZYLOPRIM) 100 mg | daily. | | | 17 | | | tablet | | | | | | + + + +---------+ + + | aspirin 81 MG | Take 325 mg by mouth | | 0 | 10/20/20 | | | tablet | daily. | | | 17 | | + + + +---------+ + + | clonazePAM | Take 0.5 mg by mouth | | 0 | 10/20/20 | | | (KLONOPIN) 0.5 mg | daily. | | | 17 | | | tablet | | | | | | + + + +---------+ + + | colchicine 0.6 mg | Take 0.6 mg by mouth | | 0 | 10/20/20 | | | tablet | daily. | | | 17 | | + + + +---------+ + + | glipiZIDE | Take 20 mg by mouth | | 0 | 10/20/20 | | | (GLUCOTROL XL) 10 mg | 2 (two) times daily. | | | 17 | | | ER tablet | | | | | | + + + +---------+ + + | insulin glargine | Inject 32 Units into | | 0 | 10/20/20 | | | (LANTUS SOLOSTAR) | the skin 2 (two) | | | 17 | | | 100 units/mL | times daily before | | | | | | injection (pen) | meals. | | | | | + + + +---------+ + + | lisinopril | Take 10 mg by mouth | | 0 | 10/20/20 | | | (PRINIVIL, ZESTRIL) | daily. | | | 17 | | | 10 mg tablet | | | | | | + + + +---------+ + + | metFORMIN | Take 1,000 mg by | | 0 | 10/20/20 | | | (GLUCOPHAGE) 1000 MG | mouth 2 (two) times | | | 17 | | | tablet | daily with meals. | | | | | + + + +---------+ + + | omeprazole | Take 20 mg by mouth | | 0 | 05/11/20 | | | (PRILOSEC) 20 mg | 2 (two) times daily. | | | 17 | | | capsule | | | | | | + + + +---------+ + + | venlafaxine | Take 150 mg by mouth | | 0 | 05/11/20 | | | (EFFEXOR XR) 150 mg | daily with | | | 17 | | | 24 hr capsule | breakfast. | | | | | + + + +---------+ + + | venlafaxine | Take 75 mg by mouth | | 0 | 05/11/20 | | | (EFFEXOR XR) 75 mg | nightly. | | | 17 | | | 24 hr capsule | | | | | | + + + +---------+ + + | atorvaSTATin | Take 1 tablet by | 30 | 11 | 05/11/20 | | | (LIPITOR) 80 MG | mouth nightly. | tablet | | 17 | 8 | | tablet | | | | | | + + + +---------+ + + | clopidogrel | Take 4 tablets by | 4 | 0 | 05/12/20 | | | (PLAVIX) 75 mg | mouth once for 1 | tablet | | 17 | 7 | | tablet | dose. | | | | | + + + +---------+ + + | clopidogrel | Take 1 tablet by | 30 | 11 | 05/13/20 | | | (PLAVIX) 75 mg | mouth daily. | tablet | | 17 | 8 | | tablet | | | | | | + + + +---------+ + + | fenofibrate | Take 1 tablet by | 30 | 11 | 05/12/20 | | | (LOFIBRA) 54 mg | mouth daily. | tablet | | 17 | 8 | | tablet | | | | | | + + + +---------+ + + | metoprolol | Take 0.5 tablets by | 30 | 11 | 05/11/20 | | | tartrate (LOPRESSOR) | mouth 2 (two) times | tablet | | 17 | 8 | | 25 mg tablet | daily. | | | | | + + + +---------+ + + | nitroglycerin | Place 1 tablet under | 90 | 12 | 05/11/20 | | | (NITROSTAT) 0.4 mg | the tongue every 5 | tablet | | 17 | 8 | | SL tablet | (five) minutes as | | | | | | | needed for Chest | | | | | | | pain. | | | | | + + + +---------+ + + documented as of this encounter Progress Notes Conversion Transaction, Provider Unknown - 05/11/2017 7:21 PM PDTFormatting of this note m ight be different from the original. Nurse Progress Note by Erni Frey RN at 05/11/171920 Author: Erin Frey RN Service: (none) Author Type: Registered Nurse Filed: 05/11/171921 Date of Service: 05/11/171920 Status: Signed Associate Justice: Erin Frey RN (Registered Nurse) Pt discharged home with family via private car. Hashim in to see pt prior to discharge. Bot h MD and nursing went over Rx with pt and family. All instructions given to pt and family in both verbal and written format. IVs removed, tips intact, bandages applied. Radial cath sit e c/d/i with no signs of bleeding or hematoma. Pt refused to be wheeled down and walked down with family. Rx sent with pt as well as stent info card. Erin Frey RN onver geraldine Transaction, Provider Unknown - 05/11/2017 6:17 PM PDT Nurse Progress Note by Erin Frey RN at 05/11/171816 Author: Erin Frey RN Service: (none) Author Type: Registered Nurse Filed: 05/11/171817 Date of Service: 05/11/171816 Status: Signed Associate Justice: Erin Frey RN (Registered Nurse) Home medications from [facility] ppwk placed into [facility] medications per Dr. Ed mason. Erin Frey RN onver geraldine Transaction, Provider Unknown - 05/11/2017 6:01 PM PDT Nurse Progress Note by Tennille Victor RN at 05/11/171800 Author: Tennille Victor RN Service: (none) Author Type: Registered Nurse Filed: 05/11/171802 Date of Service: 05/11/171800 Status: Signed Associate Justice: Tennille Victor RN (Registered Nurse) VSS. R radial site soft and intact. NSR on tele. Has not requiring pain medication today. H ourly rounding otherwise uneventful. TENNILLE VICTOR RN 05/11/17 6:03 PM onver geraldine Transaction, Provider Unknown - 05/11/2017 3:26 PM PDT Case Management by Tonie Villa RN at 05/11/176 Author: Tonie Villa RN Service: (none) Author Type: Registered Nurse Filed: 05/11/17 0535 Date of Service: 05/11/176 Status: Addendum Associate Justice: Tonie Villa RN (Registered Nurse) Related Notes: Original Note by Tonie Villa RN (Registered Nurse) filed at 05/11/17 1 535 Discharge Planning: pt may d/c home with anticoagulation Effient, if so CM can take script to Rx pharmacy as Rx has 30 day free coupon for medication. onver geraldine Transaction, Provider Unknown - 05/11/2017 6:43 AM PDT Nurse Progress Note by Darion Anderson RN at 05/11/1743 Author: Darion Anderson RN Service: (none) Author Type: Registered Nurse Filed: 05/11/1743 Date of Service: 05/11/1743 Status: Signed Associate Justice: Darion Anderson RN (Registered Nurse) No acute events during shift, 24hr chart check complete. onver geraldine Transaction, Provider Unknown - 05/10/2017 5:19 PM PDT Nurse Progress Note by Ricardo Wilson RN at 05/10/171718 Author: Ricardo Wilson RN Service: (none) Author Type: Registered Nurse Filed: 05/10/171719 Date of Service: 05/10/171718 Status: Signed Associate Justice: Ricardo Wilson RN (Registered Nurse) No adverse events during shift. Pt denies any chest pain. Right radial site is clean/dry/in tact. Ricardo Wilson RN 05/10/17 onver geraldine Transaction, Provider Unknown - 05/10/2017 3:36 PM PDT Case Management by Tonie Villa RN at 05/10/17 1531 Author: Tonie Villa RN Service: (none) Author Type: Registered Nurse Filed: 05/10/17 1541 Date of Service: 05/10/17 1536 Status: Signed Associate Justice: Tonie Villa RN (Registered Nurse) 05/10/17 1531 Discharge Planning Evaluation Admitting Diagnosis inferior stemi Readmission No Living Arrangements Spouse/significant other (pt resides with spouse Jocelyne [phone]) Support Systems Spouse/significant other Type of Residence Private residence Steps to enter 2 Bathrooms on 1st Floor 1-Full Independent with ADL's Yes Independent with Mobility Yes Home Care Services No Caregiver after Discharge No Mental Status Oriented Anticipated Discharge Plan Post Acute Care Needs None at this time Plan communicated to patient/family Yes Resources Financial concerns No Transportation issues No Patient/Family concerns [place] [facility] not listed Previous home health equipment No Vascular access device No Ostomy/Drains/Appliances No Anticipated Disposition Facility Type Home CM met with patient and discussed discharge planning, Pt is a 62 y.o., male independent wit h ADL's and ambulation. Pt resides in [place] with spouse Jocelyne [phone]. Pt is on russell m air, no non healing wounds, using aspirin for anticoagulation, no out pt services. No pt d /c needs found at this time. Patient's PCP is: Luz Gaitan Patient's insurance: [employer] Coverage concerns: no Medication coverage/concerns: no Rx Bedside Delivery: Community resources utilized / needed: no Assistance in transportation: pt spouse to transport pt home Identification of any specific education / training: TBD Barriers to Discharge / Alternative housing needed: no Anticipated DCP: pt to d/c home with spouse Tonie Villa RN CM Behzad Lin MD - 05/10/2017 10:50 AM PDTFormatting of this note might be different fr om the original. Progress Notes by Behzad Samuel MD at 05/10/17 1050 Author: Behzad Samuel MD Service: Cardiology Author Type: Physician Filed: 05/10/17 1106 Date of Service: 05/10/17 1050 Status: Signed Associate Justice: Behzad Samuel MD (Physician) [facility] Service: Cardiology Progress Note Hospital Day: LOS: 0 days Post-Op Day: * No surgery found * SUBJECTIVE Patient Summary: Events Overnight: Feels better. Denies chest pain, SOB, lightheadedness.. Ambulating. Tele: sinus rhythm. No significant arrhythmias. Scheduled Medications allopurinol 300 mg Oral Daily aspirin 81 mg Oral Daily with breakfast atorvastatin 80 mg Oral Nightly clonazePAM 0.5 mg Oral Daily colchicine 0.6 mg Oral Daily glipiZIDE 10 mg Oral QAM AC insulin glargine 32 Units Subcutaneous BID insulin lispro (human) 0-3 Units Subcutaneous Nightly insulin lispro (human) 0-6 Units Subcutaneous TID AC lisinopril 10 mg Oral Daily metoprolol 12.5 mg Oral BID pantoprazole 40 mg Oral QAM AC prasugrel 10 mg Oral Daily venlafaxine 150 mg Oral Daily with breakfast venlafaxine 75 mg Oral after dinner Continuous Infusions dextrose PRN Medications acetaminophen OR acetaminophen, albuterol, atropine sulfate, dextrose, dextrose, dextro se, glucagon, glucagon, hydrALAZINE, HYDROcodone-acetaminophen, magnesium sulfate OR mag nesium sulfate OR magnesium sulfate, nitroGLYCERIN, ondansetron OR ondansetron, poly ethylene glycol, potassium OR potassium OR potassium OR potassium chloride OR* * potassium chloride OR potassium chloride, sodium chloride (bolus), zolpidem OBJECTIVE Vital Signs: BP 115/62 (BP Location: Right upper arm) | Pulse 57 | Temp 98 F (36.7 C) (Oral) | Re sp 16 | Ht 1.829 m (6') | Wt 104.3 kg (230 lb) | SpO2 100% | BMI 31.19 kg/m Temp: [97.8 F (36.6 C)-98 F (36.7 C)] 98 F (36.7 C) (05/10 858) BP: (115-146)/(62-79) 115/62 (05/10 858) Heart Rate: [57-83] 57 (05/10 858) Resp: [15-27] 16 (05/10 858) SpO2: [96 %-100 %] 100 % (05/10 858) Height: [182.9 cm (6')] 182.9 cm (6') (05/09 2122) Weight: [104.3 kg (230 lb)] 104.3 kg (230 lb) (05/09 2122) BMI (Calculated): [31.3] 31.3 (05/09 2122) Patient Vitals for the past 24 hrs: BP Temp Temp src Pulse Resp SpO2 Height Weight 05/10/17 0858 115/62 98 F (36.7 C) Oral 57 16 100 % - - 05/10/17 0300 131/79 98 F (36.7 C) Oral 66 17 96 % - - 05/09/172317 128/63 97.8 F (36.6 C) Oral 72 17 99 % - - 05/09/172139 127/77 - - 83 18 98 % - - 05/09/172124 124/75 - - 80 24 98 % - - 05/09/172121 - - - - - - 1.829 m (6') 104.3 kg (230 lb) 05/09/172119 137/65 - - 83 17 98 % - - 05/09/172114 135/75 - - 81 27 96 % - - 05/09/172109 131/73 - - 69 17 97 % - - 05/09/172105 118/77 - - 70 17 98 % - - 05/09/172104 146/77 - - 69 15 100 % - - General appearance: alert, appears stated age, cooperative and no distress Head: Normocephalic, without obvious abnormality, atraumatic Eyes: negative findings: lids and lashes normal, conjunctivae and sclerae normal and cornea s clear Nose: no discharge Neck: no carotid bruit, no JVD, supple, symmetrical, trachea midline and thyroid not enlarg ed, symmetric, no tenderness/mass/nodules Lungs: clear to auscultation bilaterally Chest wall: no tenderness Heart: regular rate and rhythm, S1, S2 normal, no murmur, click, rub or gallop Abdomen: soft, non-tender; bowel sounds normal; no masses, no organomegaly Musculoskeletal: There is no redness, warmth, or swelling of the joints. Full range of mo tion noted. Motor strength is 5 out of 5 all extremities bilaterally. Tone is normal. Extremities: extremities normal, atraumatic, no cyanosis or edema Pulses: Radial pulses +2 bilateral. right radial access site stable without hematoma. Skin: Skin color, texture, turgor normal. No rashes or lesions Neurologic: Grossly normal DATA CBC: Lab Results Component Value Date WBC 8.55 05/09/2017 RBC 5.24 05/09/2017 HGB 15.1 05/09/2017 HCT 43.7 05/09/2017 MCV 83.5 05/09/2017 MCH 28.8 05/09/2017 MCHC 34.5 05/09/2017 RDW 41.6 05/09/2017 PLT 137 (L) 05/09/2017 MPV 9.5 05/09/2017 DIFFTYPE AUTOMATED 05/09/2017 CMP: Lab Results Component Value Date NA 139 05/10/2017 K 3.9 05/10/2017 CL 104 05/10/2017 CO2 26 05/10/2017 ANIONGAP 13 05/10/2017 GLUF 218 (H) 05/10/2017 BUN 12 05/10/2017 CREATININE 1.0 05/10/2017 BCR 12 05/10/2017 CA 8.2 (L) 05/10/2017 PROT 6.8 05/10/2017 ALB 3.1 (L) 05/10/2017 GLOB 3.7 05/10/2017 BILITOT 0.7 05/10/2017 ALP 68 05/10/2017 AST 192 (H) 05/10/2017 ALT 78 (H) 05/10/2017 EGFR >60 05/10/2017 Magnesium: Lab Results Component Value Date MG 1.7 05/10/2017 Last 3 Troponin: Lab Results Component Value Date TROPONINI 32.4 (HH) 05/10/2017 TROPONINI 70 (HH) 05/10/2017 CPK: Lab Results Component Value Date CKTOTAL 1,158 (H) 05/10/2017 CKMB: Lab Results Component Value Date CKMB 82.1 (H) 05/10/2017 PROBLEM LIST Active Problems: Acute ST elevation myocardial infarction (STEMI) of inferior wall (HCC) Long-term insulin use in type 2 diabetes (HCC) Essential hypertension Mixed hyperlipidemia S/P drug eluting coronary stent placement Hypertriglyceridemia ASSESSMENT & PLAN Acute ST elevation myocardial infarction (STEMI) of inferior wall (HCC) Long-term insulin use in type 2 diabetes (HCC) Essential hypertension Mixed hyperlipidemia S/P drug eluting coronary stent placement Hypertriglyceridemia Stable. Chest pain free Continue ASA, prasugrel, atorvastatin, metoprolol, lisinopril Add fenofibrate. Triglycerides are very high Continue insulin , lantus and correctional insulin. Ambulate Will review echo Likely home tomorrow. Disposition: Code Status: Full Code Behzad Samuel MD 05/10/2017 onversion T ransaction, Provider Unknown - 05/10/2017 7:43 AM PDTFormatting of this note might be diffe rent from the original. Nurse Progress Note by Darion Anderson RN at 05/10/17742 Author: Darion Anderson RN Service: (none) Author Type: Registered Nurse Filed: 05/10/17742 Date of Service: 05/10/17742 Status: Signed Associate Justice: Darion Anderson RN (Registered Nurse) No acute events during shift, Radial cath site soft and dry. onver geraldine Transaction, Provider Unknown - 05/09/2017 10:40 PM PDT Progress Notes by Kylie Sommer RPH at 05/09/172239 Author: Kylie Sommer RPH Service: Pharmacy Author Type: Pharmacist Filed: 05/09/172239 Date of Service: 05/09/172239 Status: Signed Associate Justice: Kylie Sommer RPH (Pharmacist) Clinical Pharmacy Note: Renal Monitoring Yassine Wilder 62 y.o. male Ht Readings from Last 1 Encounters: 05/09/17 1.829 m (6') Wt Readings from Last 1 Encounters: 05/09/17 104.3 kg (230 lb) Creatinine clearance cannot be calculated (No order found.) Pharmacy dosing for renal function per Dr. Samuel. Currently, there are no labs. Pharmacy will adjust medications, if necessary, in AM when la bs are reported. Kylie Sommer PharmD 05/09/2017 10:40 PM docume nted in this encounter H&P Notes Behzad Samuel MD - 05/09/2017 8:57 PM PDTFormatting of this note might be diffe rent from the original. H&P by Behzad Samuel MD at 05/09/172056 Author: Behzad Samuel MD Service: Cardiology Author Type: Physician Filed: 05/17/172012 Date of Service: 05/09/172056 Status: Signed Associate Justice: Behzad Samuel MD (Physician) Related Notes: Original Note by Behzad Samuel MD (Physician) filed at 05/10/17 0013 [facility] Service: Cardiology Admission History & Physical Date of Admission: 05/09/2017 Requesting Physician: [facility], Emergency Department Reason for Admission: Inferior STEMI History Obtained From: patient, chart review CHIEF COMPLAINT: Chest pain HISTORY OF PRESENT ILLNESS The patient is a 62 y.o. male with significant past medical history of Hypertension, hyper lipidemia, diabetes mellitus type 2, who was transferred from [facility] with infe rior ST-elevation myocardial infarction. The patient had chest pain midsternal that started around 6:45 p.m., described as a heaviness and was severe. It was associated with shortness of breath, lightheadedness, diaphoresis, and nausea. Otherwise, the patient denies orthopnea , paroxysmal nocturnal dyspnea, presyncope, or syncope. A 12-lead ECG done at [facility] showed normal sinus rhythm, with significant ST elevations in the inferior leads with reciprocal changes in the anterior and high lateral leads. The patient was transferred dire [facility] to the catheterization lab for emergent cardiac catheterization. REVIEW OF SYSTEMS Negative except for pertinent items noted in HPI. Past medical history Hypertension Hyperlipidemia Diabetes mellitus type II, insulin-dependent Gastroesophageal reflux disease Past surgical history on file. Sinus surgery Uvulectomy Pin in left ankle Allergies : NKA Prescriptions prior to admission. Lantus insulin Metformin Glipizide Colchicine Allopurinol Ventolin inhaler Clonazepam LisinoprilVenlafaxine Aspirin Simvastatin [place] No family history on file. History Smoking Status never a smoker Smokeless Tobacco Not on file PHYSICAL EXAM There were no vitals taken for this visit. General appearance: alert, appears stated age, cooperative and no distress Head: Normocephalic, without obvious abnormality, atraumatic Eyes: negative findings: lids and lashes normal and conjunctivae and sclerae normal Nose: no discharge Neck: no carotid bruit, no JVD, supple, symmetrical, trachea midline and thyroid not enlarg ed, symmetric, no tenderness/mass/nodules Lungs: clear to auscultation bilaterally Chest wall: no tenderness Heart: regular rate and rhythm, S1, S2 normal, no murmur, click, rub or gallop Abdomen: normal findings: bowel sounds normal, no bruits heard and soft, non-tender Musculoskeletal: There is no redness, warmth, or swelling of the joints. Full range of mo tion noted. Motor strength is 5 out of 5 all extremities bilaterally. Tone is normal. Extremities: extremities normal, atraumatic, no cyanosis or edema Pulses: Radial pulses +2 bilateral Skin: Skin color, texture, turgor normal. No rashes or lesions Neurologic: Grossly normal DATA Labs done at [facility] are pending PROBLEM LIST Active Problems: Acute ST elevation myocardial infarction (STEMI) of inferior wall (HCC) Long-term insulin use in type 2 diabetes (HCC) Essential hypertension Other hyperlipidemia ASSESSMENT & PLAN 1. Acute inferior ST-elevation myocardial infarction. 2. Hypertension. 3. Hyperlipidemia. 4. Diabetes mellitus type 2. The patient presented with chest pain and 12-lead ECG consistent with inferior ST-elevation myocardial infarction. Recommended emergent cardiac catheterization with possible percutane ous intervention. I have discussed with the patient the procedure, risks, benefits, and alte rnatives. I discussed the risks including but not limited to , stroke, need for emergen t heart surgery, infection, bleeding, injury to vessels or nerves, kidney failure, and radia tion-related skin rashes were all discussed. He understood and agreed to proceed and gave ve rbal consent. We will proceed with emergent catheterization. Thank you for allowing me to participate in the care of this patient. Disposition: Code Status: No Order Primary Care Physician: No primary care provider on file. Behzad Samuel MD 05/09/2017 documented i n this encounter ED Notes Conversion Transaction, Provider Unknown - 05/09/2017 8:35 PM PDTFormatting of this note m ight be different from the original. ED Notes by Diana Cunningham RN at 05/09/172034 Author: Diana Cunningham RN Service: (none) Author Type: Registered Nurse Filed: 05/09/172035 Date of Service: 05/09/172034 Status: Signed Associate Justice: Diana Cunningham RN (Registered Nurse) Transfer center at this facility reporting pt is STEMI from [facility] that is to go str aight to laboratory analyst. Diana Cunningham RN 05/09/172035 docume nted in this encounter Miscellaneous Notes Plan of Care - Conversion Transaction, Provider Unknown - 05/11/2017 10:03 AM PDT Plan of Care by Tennille Vicotr RN at 05/11/17 100 Author: Tennille Victor RN Service: (none) Author Type: Registered Nurse Filed: 05/11/171003 Date of Service: 05/11/171002 Status: Signed Associate Justice: Tennille Victor RN (Registered Nurse) Patient's discharge needs are met Progressing Plan for d/c today. Discussed this with patient. Verbalized understanding. Patient's pain/discomfort is manageable Progressing Denies any pain at this time. Demonstrates ability to cope with hospitalization/illness Progressing Verbalized readiness to go home. lan o f Care - Conversion Transaction, Provider Unknown - 05/11/2017 4:41 AM PDTFormatting of thi s note might be different from the original. Plan of Care by Darion Anderson RN at 05/11/17440 Author: Darion Anderson RN Service: (none) Author Type: Registered Nurse Filed: 05/11/17441 Date of Service: 05/11/17440 Status: Signed Associate Justice: Darion Anderson RN (Registered Nurse) Daily Care Daily care needs are met Progressing Pt progressing well toward discharge Pain Patient's pain/discomfort is manageable Progressing Pt has no complaints of pain. Safety Patient will be injury free during hospitalization Progressing lan o f Care - Conversion Transaction, Provider Unknown - 05/10/2017 1:12 AM PDTFormatting of thi s note might be different from the original. Plan of Care by Darion Anderson RN at 05/10/17111 Author: Darion Anderson RN Service: (none) Author Type: Registered Nurse Filed: 05/10/17112 Date of Service: 05/10/17111 Status: Signed Associate Justice: Darion Anderson RN (Registered Nurse) Pain Patient's pain/discomfort is manageable Progressing Psychosocial Needs Demonstrates ability to cope with hospitalization/illness Progressing Pt states they feel "100% better than before" and are progressing well. p Not e - Behzad Samuel MD - 05/09/2017 9:40 PM PDTFormatting of this note might be di fferent from the original. Brief Op Note by Behzad Samuel MD at 05/09/172139 Author: Behzad Samuel MD Service: Cardiology Author Type: Physician Filed: 05/10/17 180 Date of Service: 05/09/172139 Status: Signed Associate Justice: Behzad Samuel MD (Physician) [facility] Service: Cardiology Brief Op Note Severe 99% distal RCA Mild 10% prox LAD Successful PTCA/stent distal RCA and proximal rPLA using 3.0X32 mm Synergy NAOMI Behzad Samuel MD 05/10/2017 History and Risk Factors: - essential hypertension - hyperlipidemia, mixed hyperlipidemia - diabetes (type 2 uncontrolled (Hgb A1C >= 6.5) using insulin,) Clinical Evaluation: CAD presentation: STEMI (within last 7 days) STEMI: <12 hrs () Lytics: No PCI Indication: immediate CCS angina class (last 2 weeks): Class IV NYHA Heart Failure Class (last 2 weeks): None Cardiogenic Shock within 24 hours: No Cardiac Arrest within 24 hours: No Procedural Details: IABP: No PCI Status: Emergent Cardiogenic Shock at Start of PCI: No Primary Arterial Access: Radial Multivessel CAD: No Number of Lesions: 1 Lesion 1: distal RCA Pre: 99% Post: 0% CODIFIER: No LUIS: Pre - 2; Post - 3 Complexity: C - diffuse (length >2cm) Thrombus: No Bifurcation: No Dissection: No Perforation: No Stent: 3.0X32 mm Synergy NAOMI Stent Use: NAOMI only with diameter >3 mm and length >30 mm documented i n this encounter Plan of Treatment Not on filedocumented as of this encounter Procedures + +--------+ + + + | Procedure Name | Priori | Date/Time | Associated Diagnosis | Comments | | | ty | | | | + +--------+ + + + | POC GLUCOSE | Routin | 05/11/2017 | | Results for this | | | e | 4:47 PM | | procedure are in the | | | | PDT | | results section. | + +--------+ + + + | POC GLUCOSE | Routin | 05/11/2017 | | Results for this | | | e | 11:19 AM | | procedure are in the | | | | PDT | | results section. | + +--------+ + + + | POC GLUCOSE | Routin | 05/11/2017 | | Results for this | | | e | 5:33 AM | | procedure are in the | | | | PDT | | results section. | + +--------+ + + + | EXTERNAL LAB: CBC | Routin | 05/11/2017 | | Results for this | | | e | 5:06 AM | | procedure are in the | | | | PDT | | results section. | + +--------+ + + + | MAGNESIUM | Routin | 05/11/2017 | | Results for this | | | e | 5:06 AM | | procedure are in the | | | | PDT | | results section. | + +--------+ + + + | CK TOTAL | Routin | 05/11/2017 | | Results for this | | | e | 5:06 AM | | procedure are in the | | | | PDT | | results section. | + +--------+ + + + | BASIC METABOLIC | Routin | 05/11/2017 | | Results for this | | PANEL | e | 5:06 AM | | procedure are in the | | | | PDT | | results section. | + +--------+ + + + | POC GLUCOSE | Routin | 05/10/2017 | | Results for this | | | e | 9:08 PM | | procedure are in the | | | | PDT | | results section. | + +--------+ + + + | POC GLUCOSE | Routin | 05/10/2017 | | Results for this | | | e | 4:41 PM | | procedure are in the | | | | PDT | | results section. | + +--------+ + + + | TROPONIN I | Routin | 05/10/2017 | | Results for this | | | e | 3:50 PM | | procedure are in the | | | | PDT | | results section. | + +--------+ + + + | CK-MB | Routin | 05/10/2017 | | Results for this | | | e | 3:50 PM | | procedure are in the | | | | PDT | | results section. | + +--------+ + + + | CK TOTAL | Routin | 05/10/2017 | | Results for this | | | e | 3:50 PM | | procedure are in the | | | | PDT | | results section. | + +--------+ + + + | POC GLUCOSE | Routin | 05/10/2017 | | Results for this | | | e | 11:30 AM | | procedure are in the | | | | PDT | | results section. | + +--------+ + + + | TROPONIN I | Routin | 05/10/2017 | | Results for this | | | e | 9:55 AM | | procedure are in the | | | | PDT | | results section. | + +--------+ + + + | CK-MB | Routin | 05/10/2017 | | Results for this | | | e | 9:55 AM | | procedure are in the | | | | PDT | | results section. | + +--------+ + + + | CK TOTAL | Routin | 05/10/2017 | | Results for this | | | e | 9:55 AM | | procedure are in the | | | | PDT | | results section. | + +--------+ + + + | ECHO COMPLETE | Routin | 05/10/2017 | | Results for this | | | e | 8:34 AM | | procedure are in the | | | | PDT | | results section. | + +--------+ + + + | POC GLUCOSE | Routin | 05/10/2017 | | Results for this | | | e | 5:55 AM | | procedure are in the | | | | PDT | | results section. | + +--------+ + + + | LIPID PANEL | Routin | 05/10/2017 | | Results for this | | | e | 4:34 AM | | procedure are in the | | | | PDT | | results section. | + +--------+ + + + | TROPONIN I | Routin | 05/10/2017 | | Results for this | | | e | 4:34 AM | | procedure are in the | | | | PDT | | results section. | + +--------+ + + + | CK-MB | Routin | 05/10/2017 | | Results for this | | | e | 4:34 AM | | procedure are in the | | | | PDT | | results section. | + +--------+ + + + | B TYPE NATRIURETIC | Routin | 05/10/2017 | | Results for this | | PEPTIDE | e | 4:34 AM | | procedure are in the | | | | PDT | | results section. | + +--------+ + + + | MAGNESIUM | Routin | 05/10/2017 | | Results for this | | | e | 4:34 AM | | procedure are in the | | | | PDT | | results section. | + +--------+ + + + | HEMOGLOBIN A1C | Routin | 05/10/2017 | | Results for this | | | e | 4:34 AM | | procedure are in the | | | | PDT | | results section. | + +--------+ + + + | CK TOTAL | Routin | 05/10/2017 | | Results for this | | | e | 4:34 AM | | procedure are in the | | | | PDT | | results section. | + +--------+ + + + | COMPREHENSIVE | Routin | 05/10/2017 | | Results for this | | METABOLIC PANEL | e | 4:34 AM | | procedure are in the | | | | PDT | | results section. | + +--------+ + + + | POC GLUCOSE | Routin | 05/09/2017 | | Results for this | | | e | 11:18 PM | | procedure are in the | | | | PDT | | results section. | + +--------+ + + + | ECG 12 LEAD | Routin | 05/09/2017 | | Results for this | | | e | 10:35 PM | | procedure are in the | | | | PDT | | results section. | + +--------+ + + + | EXTERNAL LAB: CBC | Routin | 05/09/2017 | | Results for this | | | e | 10:32 PM | | procedure are in the | | | | PDT | | results section. | + +--------+ + + + | CV CARDIAC PROCEDURE | Routin | 05/09/2017 | | Results for this | | | e | 9:48 PM | | procedure are in the | | | | PDT | | results section. | + +--------+ + + + | CV CARDIAC PROCEDURE | Routin | 05/09/2017 | | Results for this | | | e | 9:48 PM | | procedure are in the | | | | PDT | | results section. | + +--------+ + + + | ACTIVATED CLOTTING | Routin | 05/09/2017 | | Results for this | | TIME | e | 9:41 PM | | procedure are in the | | | | PDT | | results section. | + +--------+ + + + | ACTIVATED CLOTTING | Routin | 05/09/2017 | | Results for this | | TIME | e | 9:22 PM | | procedure are in the | | | | PDT | | results section. | + +--------+ + + + | ACTIVATED CLOTTING | Routin | 05/09/2017 | | Results for this | | TIME | e | 9:10 PM | | procedure are in the | | | | PDT | | results section. | + +--------+ + + + documented in this encounter Results POC Glucose (05/11/2017 4:47 PM PDT) + + + + + + | Component | Value | Ref Range | Performed | Pathologist | | | | | At | Signature | + + + + + + | Glucose, | 179 (H)Comment: Testing | 65 - 99 mg/dL | EXTERNAL | | | Fingerstick | performed at [facility];[address] | | LAB | | | | [address];[place], [place] | | | | | | [address] | | | | + + + + + + + + | Specimen | + + | | + + + +---------+ + + | Performing | Address | City/State/Zipcode | Phone Number | | Organization | | | | + +---------+ + + | EXTERNAL LAB | | | | + +---------+ + + POC Glucose (05/11/2017 11:19 AM PDT) + + + + + + | Component | Value | Ref Range | Performed | Pathologist | | | | | At | Signature | + + + + + + | Glucose, | 143 (H)Comment: Testing | 65 - 99 mg/dL | EXTERNAL | | | Fingerstick | performed at [facility];[address] | | LAB | | | | [address];[place], [place] | | | | | | [address] | | | | + + + + + + + + | Specimen | + + | | + + + +---------+ + + | Performing | Address | City/State/Zipcode | Phone Number | | Organization | | | | + +---------+ + + | EXTERNAL LAB | | | | + +---------+ + + POC Glucose (05/11/2017 5:33 AM PDT) + + + + + + | Component | Value | Ref Range | Performed | Pathologist | | | | | At | Signature | + + + + + + | Glucose, | 178 (H)Comment: Testing | 65 - 99 mg/dL | EXTERNAL | | | Fingerstick | performed at [facility];[address] | | LAB | | | | [address];[place] | | | | | | [address] | | | | + + + + + + + + | Specimen | + + | | + + + +---------+ + + | Performing | Address | City/State/Zipcode | Phone Number | | Organization | | | | + +---------+ + + | EXTERNAL LAB | | | | + +---------+ + + External Lab: BERTO (05/11/2017 5:06 AM PDT) + + + + + + | Component | Value | Ref Range | Performed | Pathologist | | | | | At | Signature | + + + + + + | WBC | 10.65 | 3.80 - 11.00 | EXTERNAL | | | | | K/uL | LAB | | + + + + + + | Non- | 5.28 | 4.20 - 5.70 | EXTERNAL | | | Red Blood | | M/uL | LAB | | | Cells | | | | | | Counted | | | | | + + + + + + | Hemoglobin | 15.2 | 13.2 - 17.0 | EXTERNAL | | | | | g/dL | LAB | | + + + + + + | Hematocrit, | 44.4 | 39.0 - 50.0 % | EXTERNAL | | | POC | | | LAB | | + + + + + + | MCV | 84.0 | 80.0 - 100.0 fl | EXTERNAL | | | | | | LAB | | + + + + + + | MCH | 28.7 | 27.0 - 34.0 pg | EXTERNAL | | | | | | LAB | | + + + + + + | MCHC | 34.2 | 32.0 - 35.5 | EXTERNAL | | | | | g/dL | LAB | | + + + + + + | RDW-CV | 41.1 | 37 - 53 fl | EXTERNAL | | | | | | LAB | | + + + + + + | Platelet | 132 (L) | 150 - 400 K/uL | EXTERNAL | | | Count | | | LAB | | | Plasma | | | | | + + + + + + | MPV | 10.2 | fl | EXTERNAL | | | | | | LAB | | + + + + + + | Differentia | AUTOMATED | | EXTERNAL | | | l Type | | | LAB | | + + + + + + | % Segmented | 64.25 | % | EXTERNAL | | | | | | LAB | | | Neutrophils | | | | | + + + + + + | % | 24.90 | % | EXTERNAL | | | Lymphocytes | | | LAB | | + + + + + + | % Monocytes | 7.75 | % | EXTERNAL | | | | | | LAB | | + + + + + + | % | 2.38 | % | EXTERNAL | | | Eosinophils | | | LAB | | + + + + + + | % Basophils | 0.72 | % | EXTERNAL | | | | | | LAB | | + + + + + + | Absolute | 6.84 | 1.90 - 7.40 | EXTERNAL | | | Segmented | | K/uL | LAB | | | Neutrophils | | | | | + + + + + + | Absolute | 2.65 | 1.00 - 3.90 | EXTERNAL | | | Lymphocytes | | K/uL | LAB | | + + + + + + | Absolute | 0.83 (H) | 0.00 - 0.80 | EXTERNAL | | | Monocytes | | K/uL | LAB | | + + + + + + | Absolute | 0.25 | 0.00 - 0.50 | EXTERNAL | | | Eosinophils | | K/uL | LAB | | + + + + + + | Absolute | 0.08Comment: Testing | 0.00 - 0.10 | EXTERNAL | | | Basophils | performed at [facility], [address] | K/uL | LAB | | | | [address], | | | | | | [place] [address] | | | | + + + + + + + + | Specimen | + + | Blood specimen | | (specimen) | + + + +---------+ + + | Performing | Address | City/State/Zipcode | Phone Number | | Organization | | | | + +---------+ + + | EXTERNAL LAB | | | | + +---------+ + + Magnesium (05/11/2017 5:06 AM PDT) + + + + + + | Component | Value | Ref Range | Performed | Pathologist | | | | | At | Signature | + + + + + + | Magnesium | 1.6 (L)Comment: SPECIMEN | 1.7 - 2.4 mg/dL | EXTERNAL | | | | SLIGHTLY | | LAB | | | | HEMOLYZEDTesting | | | | | | performed at [facility], [address] | | | | | | [address], | | | | | | [place] [address] | | | | + + + + + + + + | Specimen | + + | Blood specimen | | (specimen) | + + + +---------+ + + | Performing | Address | City/State/Zipcode | Phone Number | | Organization | | | | + +---------+ + + | EXTERNAL LAB | | | | + +---------+ + + CK Total (05/11/2017 5:06 AM PDT) + + + + + + | Component | Value | Ref Range | Performed | Pathologist | | | | | At | Signature | + + + + + + | CK, Total | 514 (H)Comment: Testing | 55 - 400 U/L | EXTERNAL | | | | performed at [facility];[address] | | LAB | | | | [address];[place] | | | | | | [address] | | | | + + + + + + + + | Specimen | + + | Blood specimen | | (specimen) | + + + +---------+ + + | Performing | Address | City/State/Zipcode | Phone Number | | Organization | | | | + +---------+ + + | EXTERNAL LAB | | | | + +---------+ + + Basic Metabolic Panel (05/11/2017 5:06 AM PDT) + + + + + + | Component | Value | Ref Range | Performed | Pathologist | | | | | At | Signature | + + + + + + | Na | 136 | 135 - 145 | EXTERNAL | | | | | mmol/L | LAB | | + + + + + + | K | 3.9Comment: SPECIMEN | 3.5 - 4.9 | EXTERNAL | | | | SLIGHTLY HEMOLYZED | mmol/L | LAB | | + + + + + + | Cl | 101 | 99 - 109 mmol/L | EXTERNAL | | | | | | LAB | | + + + + + + | CO2 | 26 | 23 - 32 mmol/L | EXTERNAL | | | | | | LAB | | + + + + + + | Anion Gap | 13 | 5 - 20 mmol/L | EXTERNAL | | | | | | LAB | | + + + + + + | Glucose, | 170 (H)Comment: SPECIMEN | 65 - 99 mg/dL | EXTERNAL | | | Fasting | SLIGHTLY HEMOLYZED | | LAB | | + + + + + + | BUN | 12 | 8 - 25 mg/dL | EXTERNAL | | | | | | LAB | | + + + + + + | Creatinine | 1.1Comment: SPECIMEN | 0.70 - 1.30 | EXTERNAL | | | | SLIGHTLY HEMOLYZED | mg/dL | LAB | | + + + + + + | BUN/Creatin | 11 | | EXTERNAL | | | ine Ratio | | | LAB | | + + + + + + | Calcium | 8.7 | 8.5 - 10.5 | EXTERNAL | | | | | mg/dL | LAB | | + + + + + + | Estimated | >60Comment: GFR <60: | mL/min/1.73m2 | EXTERNAL | | | GFR | CHRONIC KIDNEY DISEASE, | | LAB | | | | IF FOUND OVER A 3 MONTH | | | | | | PERIOD.GFR <15: KIDNEY | | | | | | FAILURE.FOR | | | | | | AMERICANS, MULTIPLY THE | | | | | | CALCULATED GFR BY | | | | | | 1.210.Testing performed | | | | | | at L, [address] | | | | | [address], | | | | | | [place] [address] | | | | + + + + + + + + | Specimen | + + | Blood specimen | | (specimen) | + + + +---------+ + + | Performing | Address | City/State/Zipcode | Phone Number | | Organization | | | | + +---------+ + + | EXTERNAL LAB | | | | + +---------+ + + POC Glucose (05/10/2017 9:08 PM PDT) + + + + + + | Component | Value | Ref Range | Performed | Pathologist | | | | | At | Signature | + + + + + + | Glucose, | 163 (H)Comment: Testing | 65 - 99 mg/dL | EXTERNAL | | | Fingerstick | performed at [facility];[address] | | LAB | | | | [address];[place] | | | | | | [address] | | | | + + + + + + + + | Specimen | + + | | + + + +---------+ + + | Performing | Address | City/State/Zipcode | Phone Number | | Organization | | | | + +---------+ + + | EXTERNAL LAB | | | | + +---------+ + + POC Glucose (05/10/2017 4:41 PM PDT) + + + + + + | Component | Value | Ref Range | Performed | Pathologist | | | | | At | Signature | + + + + + + | Glucose, | 122 (H)Comment: Testing | 65 - 99 mg/dL | EXTERNAL | | | Fingerstick | performed at [facility];[address] | | LAB | | | | [address];[place] | | | | | | [address] | | | | + + + + + + + + | Specimen | + + | | + + + +---------+ + + | Performing | Address | City/State/Zipcode | Phone Number | | Organization | | | | + +---------+ + + | EXTERNAL LAB | | | | + +---------+ + + CK-MB (05/10/2017 3:50 PM PDT) + + + + + -+ | Component | Value | Ref Range | Performed | Pathologist | | | | | At | Signature | + + + + + -+ | CK-MB | 52.8 (H) | 0.5 - 3.6 ng/mL | EXTERNAL | | | | | | LAB | | + + + + + -+ | CK-MB Index | 6.2Comment: CK INDEX | | EXTERNAL | | | | INTERPRETATION: | | LAB | | | | MMB ng/mL | | | | | | | | | | | |CK INDEX INTERPRETATION: | | | | | | MMB ng/mL | | | | | | | | | | + + + + + -+ + + | Specimen | + + | | + + + +---------+ + + | Performing | Address | City/State/Zipcode | Phone Number | | Organization | | | | + +---------+ + + | EXTERNAL LAB | | | | + +---------+ + + Troponin I (05/10/2017 3:50 PM PDT) + + + + + + | Component | Value | Ref Range | Performed | Pathologist | | | | | At | Signature | + + + + + + | Troponin I, | 27.7 ()Comment: 0.00 | 0.00 - 0.10 | EXTERNAL | | | Qual | to 0.10 CONSISTENT | ng/mL | LAB | | | | WITH NORMAL | | | | | | POPULATION0.11 to 0.60 | | | | | | CONSISTENT WITH | | | | | | INCREASED RISK FOR | | | | | | ADVERSE OUTCOMES> 0.60 | | | | | | CONSISTENT | | | | | | WITH WHO CRITERIA FOR | | | | | | ACUTE MD CALLED | | | | | | RESULTSREAD BACK RESULTS | | | | | | [id number]/GONZALES Morales AT | | | | | | 1641Testing performed at | | | | | | [facility];[address];[place] [address] | | | | + + + + + + + + | Specimen | + + | Blood specimen | | (specimen) | + + + +---------+ + + | Performing | Address | City/State/Zipcode | Phone Number | | Organization | | | | + +---------+ + + | EXTERNAL LAB | | | | + +---------+ + + CK Total (05/10/2017 3:50 PM PDT) + + + + + + | Component | Value | Ref Range | Performed | Pathologist | | | | | At | Signature | + + + + + + | CK, Total | 845 (H)Comment: Testing | 55 - 400 U/L | EXTERNAL | | | | performed at [facility];[address] | | LAB | | | | [address] [facility];[place], [place] | | | | | | [address] | | | | + + + + + + + + | Specimen | + + | Blood specimen | | (specimen) | + + + +---------+ + + | Performing | Address | City/State/Zipcode | Phone Number | | Organization | | | | + +---------+ + + | EXTERNAL LAB | | | | + +---------+ + + POC Glucose (05/10/2017 11:30 AM PDT) + + + + + + | Component | Value | Ref Range | Performed | Pathologist | | | | | At | Signature | + + + + + + | Glucose, | 187 (H)Comment: Testing | 65 - 99 mg/dL | EXTERNAL | | | Fingerstick | performed at [facility];[address] | | LAB | | | | [address];[place] | | | | | | [address] | | | | + + + + + + + + | Specimen | + + | | + + + +---------+ + + | Performing | Address | City/State/Zipcode | Phone Number | | Organization | | | | + +---------+ + + | EXTERNAL LAB | | | | + +---------+ + + CK-MB (05/10/2017 9:55 AM PDT) + + + + + -+ | Component | Value | Ref Range | Performed | Pathologist | | | | | At | Signature | + + + + + -+ | CK-MB | 82.1 (H) | 0.5 - 3.6 ng/mL | EXTERNAL | | | | | | LAB | | + + + + + -+ | CK-MB Index | 7.1Comment: CK INDEX | | EXTERNAL | | | | INTERPRETATION: | | LAB | | | | MMB ng/mL | | | | | | | | | | | |CK INDEX INTERPRETATION: | | | | | | MMB ng/mL | | | | | | | | | | + + + + + -+ + + | Specimen | + + | | + + + +---------+ + + | Performing | Address | City/State/Zipcode | Phone Number | | Organization | | | | + +---------+ + + | EXTERNAL LAB | | | | + +---------+ + + Troponin I (05/10/2017 9:55 AM PDT) + + + + + + | Component | Value | Ref Range | Performed | Pathologist | | | | | At | Signature | + + + + + + | Troponin I, | 32.4 ()Comment: 0.00 | 0.00 - 0.10 | EXTERNAL | | | Qual | to 0.10 CONSISTENT | ng/mL | LAB | | | | WITH NORMAL | | | | | | POPULATION0.11 to 0.60 | | | | | | CONSISTENT WITH | | | | | | INCREASED RISK FOR | | | | | | ADVERSE OUTCOMES> 0.60 | | | | | | CONSISTENT | | | | | | WITH WHO CRITERIA FOR | | | | | | ACUTE MD CALLED NURSING | | | | | | TOMASARICARDO Morales AT 10:46 | | | | | | BY EW READ BACK RESULTS | | | | | | VERIFIEDTesting | | | | | | performed at [facility] | | | | | | [facility];[place], [place] | | | | | | [address] | | | | + + + + + + + + | Specimen | + + | Blood specimen | | (specimen) | + + + +---------+ + + | Performing | Address | City/State/Zipcode | Phone Number | | Organization | | | | + +---------+ + + | EXTERNAL LAB | | | | + +---------+ + + CK Total (05/10/2017 9:55 AM PDT) + + + + + + | Component | Value | Ref Range | Performed | Pathologist | | | | | At | Signature | + + + + + + | CK, Total | 1158 (H)Comment: SLT | 55 - 400 U/L | EXTERNAL | | | | HEMOLYSISTesting | | LAB | | | | performed at [facility];[address];[place], [place] | | | | | | [address] | | | | + + + + + + + + | Specimen | + + | Blood specimen | | (specimen) | + + + +---------+ + + | Performing | Address | City/State/Zipcode | Phone Number | | Organization | | | | + +---------+ + + | EXTERNAL LAB | | | | + +---------+ + + ECHO Complete (05/10/2017 8:34 AM PDT) + + | Specimen | + + | | + + + + + | Impressions | Performed At | + + + | 1. Overall left ventricular systolic function is normal with, an EF | | | between 60 - 65 %. 2. There is mild concentric left ventricular | | | hypertrophy. 3. The right ventricle is mildly enlarged with normal | | | systolic function. 4. The left atrium is moderately dilated. 5. The | | | right atrium is mildly enlarged. 6. Mild mitral regurgitation is | | | present. 7. There is mild pulmonary hypertension. | | + + + + + + | Narrative | Performed At | + + + | Patient Name: YASSINE WILDER Date of : 1955 | | | Performing Physician: Behzad Samuel MD | | | | | | INDICATIONS Acute MD CONCLUSIONS 1. | | | Overall left ventricular systolic function is normal with, an EF | | | between 60 - 65 %. 2. There is mild concentric left ventricular | | | hypertrophy. 3. The right ventricle is mildly enlarged with normal | | | systolic function. 4. The left atrium is moderately dilated. 5. The | | | right atrium is mildly enlarged. 6. Mild mitral regurgitation is | | | present. 7. There is mild pulmonary hypertension. FINDINGS | | | -------- ECG rhythm: Resting bradycardia (HR<60bpm). Study: A | | | 2-dimensional transthoracic echocardiogram with m-mode, spectral and | | | color flow Doppler was perfomed. Study: This was a technically | | | adequate study. Left Ventricle: Overall left ventricular systolic | | | function is normal with, an EF between 60 - 65 %. Left Ventricle: The | | | left ventricle cavity size is normal. Left Ventricle: There is mild | | | concentric left ventricular hypertrophy. Left Ventricle: Poor tissue | | | doppler signal prevents accurate assessment of diastolic function. | | | Right Ventricle: The right ventricle is mildly enlarged. Right | | | Ventricle: The right ventricular systolic function is normal. Left | | | Atrium: The left atrium is moderately dilated. Right Atrium: The | | | right atrium is mildly enlarged. Aortic Valve: The aortic valve is | | | trileaflet, and appears anatomically normal. No aortic stenosis or | | | regurgitation. Mitral Valve: Normal appearing mitral valve. Mitral | | | Valve: Mild mitral regurgitation is present. Tricuspid Valve: The | | | tricuspid valve appears structurally normal. Tricuspid Valve: Trace | | | tricuspid regurgitation present. Tricuspid Valve: There is mild | | | pulmonary hypertension. Tricuspid Valve: The right ventricular | | | systolic pressure (pulmonary artery systolic pressure), as measured by | | | Doppler, is 37.37mmHg. Pulmonic Valve: Trace pulmonic | | | regurgitation. Pericardium: There is no pericardial effusion. | | | IVC/Hepatic Veins: The inferior vena cava is normal in size and | | | collapses > 50 % with sniff, indicating normal central venous | | | pressures. MEASUREMENTS Ao sinus: 3.42 cm Ao | | | st junct: 2.82 cm IVC: 2.28 cm LA Major: 5.12 cm | | | EDV(Teich): 105.07 ml IVSd: 1.19 cm LVIDd: 4.75 cm LVPWd: | | | 1.15 cm LVOT Diam: 2.43 cm %FS: 38.27 % EF(Teich): | | | 68.45 % ESV(Teich): 33.14 ml IVSs: 1.58 cm LVIDs: 2.93 cm | | | LVPWs: 1.47 cm SV(Teich): 71.93 ml RA Major: 5.59 cm | | | RVIDd: 3.77 cm LVEF MOD A4C: 62.84 % SV MOD A4C: 73.50 ml | | | LVEDV MOD A4C: 116.96 ml LVLd A4C: 8.27 cm LVESV MOD A4C: | | | 43.45 ml LVLs A4C: 6.08 cm LAESV(A-L): 53.09 ml LAESV Index | | | (A-L): 23.49 ml/m2 LAAs A2C: 20.12 cm2 LAESV A-L A2C: 62.47 | | | ml LALs A2C: 5.49 cm LAAs A4C: 17.09 cm2 LAESV A-L A4C: | | | 44.71 ml LALs A4C: 5.55 cm Ao Diam: 3.31 cm AV Cusp: 2.06 | | | cm LA Diam: 4.56 cm LA/Ao: 1.37 %FS: 34.39 % EDV(Teich): | | | 144.29 ml EF(Teich): 62.90 % ESV(Teich): 53.52 ml IVSd: | | | 1.18 cm IVSs: 1.94 cm LVIDd: 5.44 cm LVIDs: 3.57 cm | | | LVPWd: 1.21 cm LVPWs: 1.87 cm SV(Teich): 90.76 ml D-E | | | Excursion: 2.13 cm E-F [place]: 0.11 m/s TAPSE: 2.72 cm HR: | | | 58.97 BPM AV maxP.59 mmHg AV meanP.30 mmHg AV | | | Vmax: 1.46 m/s AV Vmean: 0.95 m/s AV VTI: 28.22 cm CECILIA | | | Vmax: 2.92 cm2 CECILIA (VTI): 2.71 cm2 AVAI Vmax: 0.00 cm2/m2 | | | AVAI (VTI): 0.00 cm2/m2 LVCI Dopp: 2.10 l/minm2 LVCO Dopp: | | | 4.75 l/min HR: 62.15 BPM LVOT maxP.39 mmHg LVOT meanPG: | | | 1.70 mmHg LVSI Dopp: 33.84 ml/m2 LVSV Dopp: 76.48 ml LVOT | | | Vmax: 0.92 m/s LVOT Vmean: 0.60 m/s LVOT VTI: 16.46 cm | | | MCO: 377.16 ms MR maxP.41 mmHg MR Vmax: 4.67 m/s MV A | | | Varinder: 0.82 m/s MV DecT: 158.58 ms MV E Varinder: 1.13 m/s MV | | | E/A Ratio: 1.38 MV PHT: 49.43 ms MVA By PHT: 4.45 cm2 MV A | | | Dur: 131.48 ms Septal e': 0.08 m/s Septal E/e': 13.12 | | | Lateral e': 0.08 m/s Lateral E/e': 13.46 P Vein A: 0.37 m/s | | | P Vein A Dur: 117.64 ms P Vein D: 0.58 m/s P Vein S/D Ratio: | | | 1.13 P Vein S: 0.66 m/s PAEDP: 10.76 mmHg PRend PG: | | | 5.76 mmHg PRend Vmax: 1.20 m/s HR: 61.05 BPM PV maxPG: | | | 2.27 mmHg PV meanP.30 mmHg PV Vmax: 0.75 m/s PV Vmean: | | | 0.53 m/s PV VTI: 17.16 cm RAP: 5 mmHg RV S': 0.14 m/s | | | RVSP: 37.36 mmHg TR maxP.36 mmHg TR Vmax: 2.84 m/s TV | | | A Varinder: 0.50 m/s TV Dec [place]: 3.46 m/s2 TV Dec Time: | | | 229.86 ms TV E Varinder: 0.79 m/s TV E/A Ratio: 1.59 | | | Bookkeeping Clerks Supervisor: Authenticated by: Behzad Samuel MD Report | | | Date/Time: 05-10-2017 19:16:26 | | + + + + + | Procedure Note | + + | Berry Goldstein Conversion - 03/06/2019 10:27 AM PDT Patient Name: Cresencio WILDER of | | : 1955 Performing Physician: Behzad Samuel | | MD INDICATIONS A | | zhaoe MD CONCLUSIONS 1. Overall left ventricular systolic function is normal | | with, an EF between 60 - 65 %.2. There is mild concentric left ventricular | | hypertrophy.3. The right ventricle is mildly enlarged with normal systolic function.4. | | The left atrium is moderately dilated.5. The right atrium is mildly enlarged.6. Mild | | mitral regurgitation is present.7. There is mild pulmonary hypertension. | | FINDINGS--------ECG rhythm: Resting bradycardia (HR<60bpm).Study: A 2-dimensional | | transthoracic echocardiogram with m-mode, spectral and color flow Doppler was | | perfomed.Study: This was a technically adequate study.Left Ventricle: Overall left | | ventricular systolic function is normal with, an EF between 60 - 65 %.Left Ventricle: | | The left ventricle cavity size is normal.Left Ventricle: There is mild concentric left | | ventricular hypertrophy.Left Ventricle: Poor tissue doppler signal prevents accurate | | assessment of diastolic function.Right Ventricle: The right ventricle is mildly | | enlarged.Right Ventricle: The right ventricular systolic function is normal.Left Atrium: | | The left atrium is moderately dilated.Right Atrium: The right atrium is mildly | | enlarged.Aortic Valve: The aortic valve is trileaflet, and appears anatomically normal. | | No aortic stenosis or regurgitation.Mitral Valve: Normal appearing mitral valve.Mitral | | Valve: Mild mitral regurgitation is present.Tricuspid Valve: The tricuspid valve appears | | structurally normal.Tricuspid Valve: Trace tricuspid regurgitation present.Tricuspid | | Valve: There is mild pulmonary hypertension.Tricuspid Valve: The right ventricular | | systolic pressure (pulmonary artery systolic pressure), as measured by Doppler, is | | 37.37mmHg.Pulmonic Valve: Trace pulmonic regurgitation.Pericardium: There is no | | pericardial effusion.IVC/Hepatic Veins: The inferior vena cava is normal in size and | | collapses > 50 % with sniff, indicating normal central venous pressures. | | MEASUREMENTS Ao sinus: 3.[address] junct: 2.82 cmIVC: 2.28 cmLA | | Major: 5.12 cmEDV(Teich): 105.07 mlIVSd: 1.19 cmLVIDd: 4.75 cmLVPWd: 1.15 | | cmLVOT Diam: 2.43 cm%FS: 38.27 %EF(Teich): 68.45 %ESV(Teich): 33.14 mlIVSs: | | 1.58 cmLVIDs: 2.93 cmLVPWs: 1.47 cmSV(Teich): 71.93 mlRA Major: 5.59 cmRVIDd: | | 3.77 cmLVEF MOD A4C: 62.84 %SV MOD A4C: 73.50 mlLVEDV MOD A4C: 116.96 mlLVLd A4C: | | 8.27 cmLVESV MOD A4C: 43.45 mlLVLs A4C: 6.08 cmLAESV(A-L): 53.09 mlLAESV Index | | (A-L): 23.49 ml/m2LAAs A2C: 20.12 [id number] A-L A2C: 62.47 mlLALs A2C: 5.49 | | cmLAAs A4C: 17.09 [id number] A-L A4C: 44.71 mlLALs A4C: 5.55 cmAo Diam: 3.31 cmAV | | Cusp: 2.06 cmLA Diam: 4.56 cmLA/Ao: 1.37%FS: 34.39 %EDV(Teich): 144.29 | | mlEF(Teich): 62.90 %ESV(Teich): 53.52 mlIVSd: 1.18 cmIVSs: 1.94 cmLVIDd: 5.44 | | cmLVIDs: 3.57 cmLVPWd: 1.21 cmLVPWs: 1.87 cmSV(Teich): 90.76 mlD-E Excursion: | | 2.13 cmE-F [place]: 0.11 m/sTAPSE: 2.72 cmHR: 58.97 BPMAV maxP.59 mmHgAV | | meanP.30 mmHgAV Vmax: 1.46 m/Delicia Vmean: 0.95 m/Delicia VTI: 28.22 cmAVA Vmax: | | 2.92 cm2AVA (VTI): 2.71 [id number] Vmax: 0.00 cm2/m2AVAI (VTI): 0.00 cm2/m2LVCI Dopp: | | 2.10 l/ncnj1MHDM Dopp: 4.75 l/minHR: 62.15 BPMLVOT maxP.39 mmHgLVOT meanPG: | | 1.70 mmHgLVSI Dopp: 33.84 ml/m2LVSV Dopp: 76.48 mlLVOT Vmax: 0.92 m/sLVOT | | Vmean: 0.60 m/sLVOT VTI: 16.46 cmMCO: 377.16 msMR maxP.41 mmHgMR Vmax: | | 4.67 m/sMV A Varinder: 0.82 m/sMV DecT: 158.58 msMV E Varinder: 1.13 m/sMV E/A Ratio: | | 1.38MV PHT: 49.43 msMVA By PHT: 4.45 cm2MV A Dur: 131.48 msSeptal e': 0.08 | | m/sSeptal E/e': 13.12Lateral e': 0.08 m/sLateral E/e': 13.46P Vein A: 0.37 m/sP | | Vein A Dur: 117.64 msP Vein D: 0.58 m/sP Vein S/D Ratio: 1.13P Vein S: 0.66 | | m/sPAEDP: 10.76 mmHgPRend P.76 mmHgPRend Vmax: 1.20 m/sHR: 61.05 BPMPV | | maxP.27 mmHgPV meanP.30 mmHgPV Vmax: 0.75 m/sPV Vmean: 0.53 m/sPV VTI: | | 17.16 cmRAP: 5 mmHgRV S': 0.14 m/sRVSP: 37.36 mmHgTR maxP.36 mmHgTR Vmax: | | 2.84 m/sTV A Varinder: 0.50 m/sTV Dec [place]: 3.46 m/s2TV Dec Time: 229.86 msTV E Varinder: | | 0.79 m/sTV E/A Ratio: 1.59 Bookkeeping Clerks Supervisor: ASAuthenticated by: Behzad Samuel | | MDReport Date/Time: 05-10-2017 19:16:26 IMPRESSION: 1. Overall left ventricular systolic | | function is normal with, an EF between 60 - 65 %.2. There is mild concentric left | | ventricular hypertrophy.3. The right ventricle is mildly enlarged with normal systolic | | function.4. The left atrium is moderately dilated.5. The right atrium is mildly | | enlarged.6. Mild mitral regurgitation is present.7. There is mild pulmonary | | hypertension. | |EF(Teich): 68.45 % | |ESV(Teich): 33.14 ml | |IVSs: 1.58 cm | |LVIDs: 2.93 cm | |LVPWs: 1.47 cm | |SV(Teich): 71.93 ml | |RA Major: 5.59 cm | |RVIDd: 3.77 cm | |LVEF MOD A4C: 62.84 % | |SV MOD A4C: 73.50 ml | |LVEDV MOD A4C: 116.96 ml | |LVLd A4C: 8.27 cm | |LVESV MOD A4C: 43.45 ml | |LVLs A4C: 6.08 cm | |LAESV(A-L): 53.09 ml | |LAESV Index (A-L): 23.49 ml/m2 | |LAAs A2C: 20.12 cm2 | |LAESV A-L A2C: 62.47 ml | |LALs A2C: 5.49 cm | |LAAs A4C: 17.09 cm2 | |LAESV A-L A4C: 44.71 ml | |LALs A4C: 5.55 cm | |Ao Diam: 3.31 cm | |AV Cusp: 2.06 cm | |LA Diam: 4.56 cm | |LA/Ao: 1.37 | |%FS: 34.39 % | |EDV(Teich): 144.29 ml | |EF(Teich): 62.90 % | |ESV(Teich): 53.52 ml | |IVSd: 1.18 cm | |IVSs: 1.94 cm | |LVIDd: 5.44 cm | |LVIDs: 3.57 cm | |LVPWd: 1.21 cm | |LVPWs: 1.87 cm | |SV(Teich): 90.76 ml | |D-E Excursion: 2.13 cm | |E-F [place]: 0.11 m/s | |TAPSE: 2.72 cm | |HR: 58.97 BPM | |AV maxP.59 mmHg | |AV meanP.30 mmHg | |AV Vmax: 1.46 m/s | |AV Vmean: 0.95 m/s | |AV VTI: 28.22 cm | |CECILIA Vmax: 2.92 cm2 | |CECILIA (VTI): 2.71 cm2 | |AVAI Vmax: 0.00 cm2/m2 | |AVAI (VTI): 0.00 cm2/m2 | |LVCI Dopp: 2.10 l/minm2 | |LVCO Dopp: 4.75 l/min | |HR: 62.15 BPM | |LVOT maxP.39 mmHg | |LVOT meanP.70 mmHg | |LVSI Dopp: 33.84 ml/m2 | |LVSV Dopp: 76.48 ml | |LVOT Vmax: 0.92 m/s | |LVOT Vmean: 0.60 m/s | |LVOT VTI: 16.46 cm | |MCO: 377.16 ms | |MR maxP.41 mmHg | |MR Vmax: 4.67 m/s | |MV A Varinder: 0.82 m/s | |MV DecT: 158.58 ms | |MV E Varinder: 1.13 m/s | |MV E/A Ratio: 1.38 | |MV PHT: 49.43 ms | |MVA By PHT: 4.45 cm2 | |MV A Dur: 131.48 ms | |Septal e': 0.08 m/s | |Septal E/e': 13.12 | |Lateral e': 0.08 m/s | |Lateral E/e': 13.46 | |P Vein A: 0.37 m/s | |P Vein A Dur: 117.64 ms | |P Vein D: 0.58 m/s | |P Vein S/D Ratio: 1.13 | |P Vein S: 0.66 m/s | |PAEDP: 10.76 mmHg | |PRend P.76 mmHg | |PRend Vmax: 1.20 m/s | |HR: 61.05 BPM | |PV maxP.27 mmHg | |PV meanP.30 mmHg | |PV Vmax: 0.75 m/s | |PV Vmean: 0.53 m/s | |PV VTI: 17.16 cm | |RAP: 5 mmHg | |RV S': 0.14 m/s | |RVSP: 37.36 mmHg | |TR maxP.36 mmHg | |TR Vmax: 2.84 m/s | |TV A Varinder: 0.50 m/s | |TV Dec [place]: 3.46 m/s2 | |TV Dec Time: 229.86 ms | |TV E Varinder: 0.79 m/s | |TV E/A Ratio: 1.59 | | | |Bookkeeping Clerks Supervisor: | |Authenticated by: Behzad Samuel MD | |Report Date/Time: 05-10-2017 19:16:26 | | | |IMPRESSION: | |1. Overall left ventricular systolic function is normal with, an EF between 60 - 65 %. | |2. There is mild concentric left ventricular hypertrophy. | |3. The right ventricle is mildly enlarged with normal systolic function. | |4. The left atrium is moderately dilated. | |5. The right atrium is mildly enlarged. | |6. Mild mitral regurgitation is present. | |7. There is mild pulmonary hypertension. | + + POC Glucose (05/10/2017 5:55 AM PDT) + + + + + + | Component | Value | Ref Range | Performed | Pathologist | | | | | At | Signature | + + + + + + | Glucose, | 196 (H)Comment: Testing | 65 - 99 mg/dL | EXTERNAL | | | Fingerstick | performed at [facility];[address] | | LAB | | | | [address];[place], [place] | | | | | | [address] | | | | + + + + + + + + | Specimen | + + | | + + + +---------+ + + | Performing | Address | City/State/Zipcode | Phone Number | | Organization | | | | + +---------+ + + | EXTERNAL LAB | | | | + +---------+ + + CK-MB (05/10/2017 4:34 AM PDT) + + + + + -+ | Component | Value | Ref Range | Performed | Pathologist | | | | | At | Signature | + + + + + -+ | CK-MB | 114.1 (H) | 0.5 - 3.6 ng/mL | EXTERNAL | | | | | | LAB | | + + + + + -+ | CK-MB Index | 7.4Comment: CK INDEX | | EXTERNAL | | | | INTERPRETATION: | | LAB | | | | MMB ng/mL | | | | | | | | | | | |CK INDEX INTERPRETATION: | | | | | | MMB ng/mL | | | | | | | | | | + + + + + -+ + + | Specimen | + + | | + + + +---------+ + + | Performing | Address | City/State/Zipcode | Phone Number | | Organization | | | | + +---------+ + + | EXTERNAL LAB | | | | + +---------+ + + Troponin I (05/10/2017 4:34 AM PDT) + + + + + + | Component | Value | Ref Range | Performed | Pathologist | | | | | At | Signature | + + + + + + | Troponin I, | 70 ()Comment: 0.00 | 0.00 - 0.10 | EXTERNAL | | | Qual | to 0.10 CONSISTENT | ng/mL | LAB | | | | WITH NORMAL | | | | | | POPULATION0.11 to 0.60 | | | | | | CONSISTENT WITH | | | | | | INCREASED RISK FOR | | | | | | ADVERSE OUTCOMES> 0.60 | | | | | | CONSISTENT | | | | | | WITH WHO CRITERIA FOR | | | | | | ACUTE MD CALLED NURSING | | | | | | UNITREAD BACK RESULTS | | | | | | LETYPETTY BENSON IN 4RP | | | | | | AT 0612 BY TDTesting | | | | | | performed at [facility];[address] | | | | | [facility], [place] | | | | | | [id number] | | | | + + + + + + + + | Specimen | + + | Blood specimen | | (specimen) | + + + +---------+ + + | Performing | Address | City/State/Zipcode | Phone Number | | Organization | | | | + +---------+ + + | EXTERNAL LAB | | | | + +---------+ + + B Type Natriuretic Peptide (05/10/2017 4:34 AM PDT) + + + + + + | Component | Value | Ref Range | Performed | Pathologist | | | | | At | Signature | + + + + + + | BNP | 12.7Comment: Testing | 0 - 100 pg/mL | EXTERNAL | | | | performed at [facility] | | LAB | | | | [facility], [place] | | | | | | [address] | | | | + + + + + + + + | Specimen | + + | Blood specimen | | (specimen) | + + + +---------+ + + | Performing | Address | City/State/Zipcode | Phone Number | | Organization | | | | + +---------+ + + | EXTERNAL LAB | | | | + +---------+ + + Magnesium (05/10/2017 4:34 AM PDT) + + + + + + | Component | Value | Ref Range | Performed | Pathologist | | | | | At | Signature | + + + + + + | Magnesium | 1.7Comment: SPECIMEN | 1.7 - 2.4 mg/dL | EXTERNAL | | | | SLIGHTLY | | LAB | | | | HEMOLYZEDTesting | | | | | | performed at [facility], [address] | | | | | [address] [address], | | | | | | [place] [address] | | | | + + + + + + + + | Specimen | + + | Blood specimen | | (specimen) | + + + +---------+ + + | Performing | Address | City/State/Zipcode | Phone Number | | Organization | | | | + +---------+ + + | EXTERNAL LAB | | | | + +---------+ + + Hemoglobin A1C (05/10/2017 4:34 AM PDT) + + + + + + | Component | Value | Ref Range | Performed | Pathologist | | | | | At | Signature | + + + + + + | Hemoglobin | 8.7 (H)Comment: The | 4.0 - 6.0 % | EXTERNAL | | | A1c | [facility] | | LAB | | | | Association considers a | | | | | | hemoglobin A1c result of | | | | | | <7.0% to be the goal of | | | | | | diabetic therapy. | | | | | | When results are | | | | | | consistently >8.0%, the | | | | | | ADA suggests | | | | | | reevaluation of the | | | | | | treatment regimen. The | | | | | | testing method used is | | | | | | certified traceable to | | | | | | the Diabetes Control and | | | | | | Complications Trial | | | | | | reference method. | | | | + + + + + + | Glycohemogl | 203Comment: The ADA | mg/dL | EXTERNAL | | | obin | considers an eAG result | | LAB | | | (GHb),Total | of LT 154 mg/dL to be | | | | | | the goal of diabetic | | | | | | therapy. Estimated | | | | | | Average Glucose | | | | | | calculated from | | | | | | hemoglobin A1c by use of | | | | | | the ADA recommended | | | | | | formula.Testing | | | | | | performed at [facility], [address] | | | | | [address], | | | | | | [place] [address] | | | | + + + + + + + + | Specimen | + + | Blood specimen | | (specimen) | + + + +---------+ + + | Performing | Address | City/State/Zipcode | Phone Number | | Organization | | | | + +---------+ + + | EXTERNAL LAB | | | | + +---------+ + + CK Total (05/10/2017 4:34 AM PDT) + + + + + + | Component | Value | Ref Range | Performed | Pathologist | | | | | At | Signature | + + + + + + | CK, Total | 1534 (H)Comment: SLT | 55 - 400 U/L | EXTERNAL | | | | HEMOLYSISTesting | | LAB | | | | performed at [facility];[address] | | | | | | [address];[place] | | | | | | [address] | | | | + + + + + + + + | Specimen | + + | Blood specimen | | (specimen) | + + + +---------+ + + | Performing | Address | City/State/Zipcode | Phone Number | | Organization | | | | + +---------+ + + | EXTERNAL LAB | | | | + +---------+ + + Lipid Panel (05/10/2017 4:34 AM PDT) + + + + + + | Component | Value | Ref Range | Performed | Pathologist | | | | | At | Signature | + + + + + + | Cholesterol | 165Comment: SPECIMEN | mg/dL | EXTERNAL | | | | SLIGHTLY HEMOLYZED | | LAB | | + + + + + + | Triglycerid | 702 (H)Comment: SPECIMEN | mg/dL | EXTERNAL | | | es | SLIGHTLY HEMOLYZED | | LAB | | + + + + + + | HDL | 24 (L) | mg/dL | EXTERNAL | | | | | | LAB | | + + + + + + | LDL, | LDL NOT VALID WHEN TRIG | mg/dL | EXTERNAL | | | Calculated | >400 mg/dLComment: | | LAB | | | | Testing performed at | | | | | | [facility], [address] | | | | | | [place] | | | | | | [address] | | | | + + + + + + + + | Specimen | + + | Blood specimen | | (specimen) | + + + +---------+ + + | Performing | Address | City/State/Zipcode | Phone Number | | Organization | | | | + +---------+ + + | EXTERNAL LAB | | | | + +---------+ + + Comprehensive Metabolic Panel (05/10/2017 4:34 AM PDT) + + + + + + | Component | Value | Ref Range | Performed | Pathologist | | | | | At | Signature | + + + + + + | Na | 139 | 135 - 145 | EXTERNAL | | | | | mmol/L | LAB | | + + + + + + | K | 3.9Comment: SPECIMEN | 3.5 - 4.9 | EXTERNAL | | | | SLIGHTLY HEMOLYZED | mmol/L | LAB | | + + + + + + | Cl | 104 | 99 - 109 mmol/L | EXTERNAL | | | | | | LAB | | + + + + + + | CO2 | 26 | 23 - 32 mmol/L | EXTERNAL | | | | | | LAB | | + + + + + + | Anion Gap | 13 | 5 - 20 mmol/L | EXTERNAL | | | | | | LAB | | + + + + + + | Glucose, | 218 (H)Comment: SPECIMEN | 65 - 99 mg/dL | EXTERNAL | | | Fasting | SLIGHTLY HEMOLYZED | | LAB | | + + + + + + | BUN | 12 | 8 - 25 mg/dL | EXTERNAL | | | | | | LAB | | + + + + + + | Creatinine | 1.0Comment: SPECIMEN | 0.70 - 1.30 | EXTERNAL | | | | SLIGHTLY HEMOLYZED | mg/dL | LAB | | + + + + + + | BUN/Creatin | 12 | | EXTERNAL | | | ine Ratio | | | LAB | | + + + + + + | Calcium | 8.2 (L) | 8.5 - 10.5 | EXTERNAL | | | | | mg/dL | LAB | | + + + + + + | Protein, | 6.8 | 6.3 - 8.2 g/dL | EXTERNAL | | | Total | | | LAB | | + + + + + + | Albumin | 3.1 (L) | 3.3 - 4.8 g/dL | EXTERNAL | | | | | | LAB | | + + + + + + | Globulin | 3.7 | 1.3 - 4.9 g/dL | EXTERNAL | | | | | | LAB | | + + + + + + | A/G Ratio | 0.8 (L) | 1.0 - 2.4 | EXTERNAL | | | | | | LAB | | + + + + + + | Bilirubin | 0.7Comment: SPECIMEN | 0.1 - 1.5 mg/dL | EXTERNAL | | | Total | SLIGHTLY HEMOLYZED | | LAB | | + + + + + + | ALP, | 68 | 35 - 115 U/L | EXTERNAL | | | External | | | LAB | | + + + + + + | AST | 192 (H)Comment: SPECIMEN | 10 - 45 U/L | EXTERNAL | | | | SLIGHTLY HEMOLYZED | | LAB | | + + + + + + | ALT | 78 (H)Comment: SPECIMEN | 10 - 65 U/L | EXTERNAL | | | | SLIGHTLY HEMOLYZED | | LAB | | + + + + + + | Estimated | >60Comment: GFR <60: | mL/min/1.73m2 | EXTERNAL | | | GFR | CHRONIC KIDNEY DISEASE, | | LAB | | | | IF FOUND OVER A 3 MONTH | | | | | | PERIOD.GFR <15: KIDNEY | | | | | | FAILURE.FOR | | | | | | AMERICANS, MULTIPLY THE | | | | | | CALCULATED GFR BY | | | | | | 1.210.Testing performed | | | | | | at [facility], [address] | | | | | [facility], | | | | | | [place] [address] | | | | + + + + + + + + | Specimen | + + | Blood specimen | | (specimen) | + + + +---------+ + + | Performing | Address | City/State/Zipcode | Phone Number | | Organization | | | | + +---------+ + + | EXTERNAL LAB | | | | + +---------+ + + POC Glucose (05/09/2017 11:18 PM PDT) + + + + + + | Component | Value | Ref Range | Performed | Pathologist | | | | | At | Signature | + + + + + + | Glucose, | 245 (H)Comment: Testing | 65 - 99 mg/dL | EXTERNAL | | | Fingerstick | performed at [facility];[address] | | LAB | | | | [address];[place], [place] | | | | | | [address] | | | | + + + + + + + + | Specimen | + + | | + + + +---------+ + + | Performing | Address | City/State/Zipcode | Phone Number | | Organization | | | | + +---------+ + + | EXTERNAL LAB | | | | + +---------+ + + ECG 12 lead (05/09/2017 10:35 PM PDT) + + + + + + | Component | Value | Ref Range | Performed | Pathologist | | | | | At | Signature | + + + + + + | DIAGNOSIS: | Normal sinus | | EXTERNAL | | | | rhythmNormal ECG No | | LAB | | | | previous ECGs | | | | | | availableConfirmed by | | | | | | SHERRIE SHAH ([id number]) on | | | | | | 05/10/2017 2:17:49 PM | | | | + + + + + + + + | Specimen | + + | | + + + + + | Narrative | Performed At | + + + | Historically converted procedure from [facility] | EXTERNAL LAB | + + + + +---------+ + + | Performing | Address | City/State/Zipcode | Phone Number | | Organization | | | | + +---------+ + + | EXTERNAL LAB | | | | + +---------+ + + External Lab: CBC (05/09/2017 10:32 PM PDT) + + + + + + | Component | Value | Ref Range | Performed | Pathologist | | | | | At | Signature | + + + + + + | WBC | 8.55 | 3.80 - 11.00 | EXTERNAL | | | | | K/uL | LAB | | + + + + + + | Non- | 5.24 | 4.20 - 5.70 | EXTERNAL | | | Red Blood | | M/uL | LAB | | | Cells | | | | | | Counted | | | | | + + + + + + | Hemoglobin | 15.1 | 13.2 - 17.0 | EXTERNAL | | | | | g/dL | LAB | | + + + + + + | Hematocrit, | 43.7 | 39.0 - 50.0 % | EXTERNAL | | | POC | | | LAB | | + + + + + + | MCV | 83.5 | 80.0 - 100.0 fl | EXTERNAL | | | | | | LAB | | + + + + + + | MCH | 28.8 | 27.0 - 34.0 pg | EXTERNAL | | | | | | LAB | | + + + + + + | MCHC | 34.5 | 32.0 - 35.5 | EXTERNAL | | | | | g/dL | LAB | | + + + + + + | RDW-CV | 41.6 | 37 - 53 fl | EXTERNAL | | | | | | LAB | | + + + + + + | Platelet | 137 (L) | 150 - 400 K/uL | EXTERNAL | | | Count | | | LAB | | | Plasma | | | | | + + + + + + | MPV | 9.5 | fl | EXTERNAL | | | | | | LAB | | + + + + + + | Differentia | AUTOMATED | | EXTERNAL | | | l Type | | | LAB | | + + + + + + | % Segmented | 74.38 | % | EXTERNAL | | | | | | LAB | | | Neutrophils | | | | | + + + + + + | % | 17.36 | % | EXTERNAL | | | Lymphocytes | | | LAB | | + + + + + + | % Monocytes | 5.41 | % | EXTERNAL | | | | | | LAB | | + + + + + + | % | 1.78 | % | EXTERNAL | | | Eosinophils | | | LAB | | + + + + + + | % Basophils | 1.07 | % | EXTERNAL | | | | | | LAB | | + + + + + + | Absolute | 6.36 | 1.90 - 7.40 | EXTERNAL | | | Segmented | | K/uL | LAB | | | Neutrophils | | | | | + + + + + + | Absolute | 1.48 | 1.00 - 3.90 | EXTERNAL | | | Lymphocytes | | K/uL | LAB | | + + + + + + | Absolute | 0.46 | 0.00 - 0.80 | EXTERNAL | | | Monocytes | | K/uL | LAB | | + + + + + + | Absolute | 0.15 | 0.00 - 0.50 | EXTERNAL | | | Eosinophils | | K/uL | LAB | | + + + + + + | Absolute | 0.09Comment: Testing | 0.00 - 0.10 | EXTERNAL | | | Basophils | performed at [facility];[address] | [address] | LAB | | | | [address];[place], [place] | | | | | | [address] | | | | + + + + + + + + | Specimen | + + | Blood specimen | | (specimen) | + + + +---------+ + + | Performing | Address | City/State/Zipcode | Phone Number | | Organization | | | | + +---------+ + + | EXTERNAL LAB | | | | + +---------+ + + CV CARDIAC PROCEDURE (05/09/2017 9:48 PM PDT) + + | Specimen | + + | | + + + + + | Narrative | Performed At | + + + | | | | | | | DATE OF PROCEDURE May 09, 2017 PROCEDURES PERFORMED 1. | | | Conscious sedation. 2. Right radial artery access. 3. Left heart | | | catheterization. 4. Selective left and right coronary artery | | | angiogram. 5. Successful percutaneous transluminal coronary | | | angioplasty and stenting of the distal right coronary artery and the | | | proximal right posterolateral artery using a 3 x 32 mm Synergy | | | drug-eluting stent, post dilated using a 3 noncompliant balloon. | | | INDICATIONS Acute inferior ST elevation myocardial infarction. | | | HISTORY OF PRESENT ILLNESS This is a 62-year-old male with a history | | | of hypertension, hyperlipidemia, diabetes mellitus type 2, | | | insulin-requiring, who was transferred from [facility] with | | | chest pain and inferior ST elevation myocardial infarction. The | | | patient has clear ST elevations in the anterior leads with reciprocal | | | changes. Emergent cardiac catheterization with possible percutaneous | | | coronary intervention was recommended. The procedure, risks, | | | benefits, and alternatives were discussed with the patient, and he | | | gave a verbal consent to proceed. TECHNIQUE The patient was | | | brought directly to the laboratory analyst. The patient was prepped and draped | | | in the usual sterile fashion. After informed consent was obtained, | | | the patient was prepped and draped in the usual sterile fashion. | | | Timeout for patient safety was performed. Lidocaine 1% was used for | | | local anesthesia of the skin overlying the right radial artery. The | | | right radial artery was accessed using an angiocatheter. A 6-Colombian | | | sheath was threaded into the right radial artery without difficulty. | | | Subsequently, the patient was given a cocktail containing 100 mcg | | | nitroglycerin and 1 mg of Verapamil to prevent radial artery spasm. | | | The patient had received multiple doses throughout the procedure. | | | Following sheath insertion, the patient was given a heparin bolus and | | | aspirin prior to transfer, and has been on a heparin drip. We sent a | | | blood sample for ACT. The patient had received additional heparin | | | boluses to keep ACT more than 200. Subsequently, a 5-Colombian FL3.5 | | | catheter was used for selective engagement of the left coronary | | | system, and angiographic views were obtained. A 5-Colombian JR4 guiding | | | catheter was used for selective engagement of the right coronary | | | artery, and angiographic views were obtained which showed severe | | | subtotal occlusion of the distal right coronary artery. Subsequently, | | | a BMW wire was advanced and used to cross the area of subtotal | | | occlusion, and advanced into the right posterolateral artery. There | | | was LUIS 2 flow. The lesion was predilated using a 2 x 8 mm compliant | | | Emerge balloon which was inflated up to 8 atmospheres. | | | Subsequently, the patient was given intracoronary nitroglycerin and | | | angiographic views were obtained to assess the vessel size. | | | Subsequently, a 3 x 32 mm Synergy drug-eluting stent was advanced and | | | deployed in the distal right coronary artery and proximal right | | | posterolateral artery, across the origin of the right posterior | | | descending artery, covering the whole diseased segment. The stent was | | | deployed at nominal atmospheres of 11. Subsequently, the stent was | | | post dilated using a 3 x 20 mm noncompliant Quantum balloon, which | | | was inflated up to 18 and 20 atmospheres. Post intervention | | | angiogram showed excellent results, with reduction in degree of | | | stenosis from 99% down to 0%, and increasing LUIS flow from LUIS 2 up | | | to LUIS 3 flow. Subsequently, the 6-Colombian JR4 guiding catheter was | | | advanced over the guidewire into the left ventricle. Left ventricular | | | pressures and pullback pressures were obtained. All catheters and | | | guidewires were removed. The patient had received a double bolus of | | | Integrilin during the procedure. At the end of the procedure, the | | | patient was given a loading dose of Effient 60 mg. The patient | | | tolerated the procedure well, without complications. RESULTS | | | TOTAL CONTRAST Isovue 125 mL. HEMODYNAMICS 1. Left ventricular | | | systolic pressure 138. 2. Left ventricular end-diastolic pressure 29. | | | 3. On pullback, aortic pressure 145/76. 4. There was no significant | | | gradient across the aortic valve on pullback. CORONARY ANATOMY | | | 1. The left main coronary artery bifurcates and gives rise to the left | | | anterior descending and left circumflex arteries. The left main | | | coronary artery is free of disease. 2. Left anterior descending | | | artery is a large type 4 vessel, that wraps around the apex. The left | | | anterior descending artery has very mild calcification and mild | | | disease in the range of 10% proximally. 3. Left circumflex artery is | | | a nondominant vessel, that gives rise to a large single marginal | | | branch, and thereafter becomes a very small vessel. The left | | | circumflex artery and its large marginal branch are free of disease. | | | 4. Right coronary artery is a dominant vessel giving rise to the | | | posterior descending and posterolateral arteries distally. The | | | posterior descending artery is a small vessel. There is a subtotal | | | occlusion of the distal right coronary artery with severe disease, in | | | the range of 99%, extending into the proximal right posterolateral | | | artery with a 70% proximal right posterolateral artery disease with | | | LUIS 2 flow. ESTIMATED BLOOD LOSS Less than 50 mL. IMPRESSION | | | 1. Two-vessel coronary artery disease with mild disease of the | | | proximal left anterior descending artery and severe disease of the | | | distal right coronary artery. 2. Successful percutaneous | | | transluminal coronary angioplasty and stenting of the distal right | | | coronary artery and the proximal right posterolateral artery using a | | | 3 x 32 mm Synergy drug-eluting stent, post dilated using a 3 | | | noncompliant balloon. PLAN 1. The patient will be continued on | | | aspirin 81 mg for life. 2. Will need to continue Effient 10 mg for at | | | least 1 year. 3. Will start the patient on metoprolol and high-dose | | | Atorvastatin. 4. Echocardiogram. Read by BEHZAD SAMUEL MD | | | 05/10/2017 06:06 P | | + + + + + | Procedure Note | + + | Berry Goldstein Conversion - 03/12/2019 3:32 PM PDT | | | | | | DATE OF PROCEDURE | | May 09, 2017 | | | | PROCEDURES PERFORMED | | 1. Conscious sedation. | | 2. Right radial artery access. | | 3. Left heart catheterization. | | 4. Selective left and right coronary artery angiogram. | | 5. Successful percutaneous transluminal coronary angioplasty and stenting | | of the distal right coronary artery and the proximal right | | posterolateral artery using a 3 x 32 mm Synergy drug-eluting stent, post | | dilated using a 3 noncompliant balloon. | | | | INDICATIONS | | Acute inferior ST elevation myocardial infarction. | | | | HISTORY OF PRESENT ILLNESS | | This is a 62-year-old male with a history of hypertension, hyperlipidemia, | | diabetes mellitus type 2, insulin-requiring, who was transferred from . | | [facility] with chest pain and inferior ST elevation myocardial | | infarction. The patient has clear ST elevations in the anterior leads with | | reciprocal changes. Emergent cardiac catheterization with possible | | percutaneous coronary intervention was recommended. The procedure, risks, | | benefits, and alternatives were discussed with the patient, and he gave a | | verbal consent to proceed. | | | | TECHNIQUE | | The patient was brought directly to the laboratory analyst. The patient was prepped | | and draped in the usual sterile fashion. After informed consent was | | obtained, the patient was prepped and draped in the usual sterile fashion. | | Timeout for patient safety was performed. Lidocaine 1% was used for local | | anesthesia of the skin overlying the right radial artery. The right radial | | artery was accessed using an angiocatheter. A 6-Colombian sheath was threaded | | into the right radial artery without difficulty. Subsequently, the patient | | was given a cocktail containing 100 mcg nitroglycerin and 1 mg of Verapamil | | to prevent radial artery spasm. The patient had received multiple doses | | throughout the procedure. | | | | Following sheath insertion, the patient was given a heparin bolus and | | aspirin prior to transfer, and has been on a heparin drip. We sent a blood | | sample for ACT. The patient had received additional heparin boluses to keep | | ACT more than 200. Subsequently, a 5-Colombian FL3.5 catheter was used for | | selective engagement of the left coronary system, and angiographic views | | were obtained. A 5-Colombian JR4 guiding catheter was used for selective | | engagement of the right coronary artery, and angiographic views were | | obtained which showed severe subtotal occlusion of the distal right | | coronary artery. Subsequently, a BMW wire was advanced and used to cross | | the area of subtotal occlusion, and advanced into the right posterolateral | | artery. There was LUIS 2 flow. The lesion was predilated using a 2 x 8 mm | | compliant Emerge balloon which was inflated up to 8 atmospheres. | | | | Subsequently, the patient was given intracoronary nitroglycerin and | | angiographic views were obtained to assess the vessel size. Subsequently, a | | 3 x 32 mm Synergy drug-eluting stent was advanced and deployed in the | | distal right coronary artery and proximal right posterolateral artery, | | across the origin of the right posterior descending artery, covering the | | whole diseased segment. The stent was deployed at nominal atmospheres of | | 11. Subsequently, the stent was post dilated using a 3 x 20 mm noncompliant | | Quantum balloon, which was inflated up to 18 and 20 atmospheres. | | | | Post intervention angiogram showed excellent results, with reduction in | | degree of stenosis from 99% down to 0%, and increasing LUIS flow from LUIS | | 2 up to LUIS 3 flow. Subsequently, the 6-Colombian JR4 guiding catheter was | | advanced over the guidewire into the left ventricle. Left ventricular | | pressures and pullback pressures were obtained. All catheters and | | guidewires were removed. The patient had received a double bolus of | | Integrilin during the procedure. At the end of the procedure, the patient | | was given a loading dose of Effient 60 mg. The patient tolerated the | | procedure well, without complications. | | | | RESULTS | | TOTAL CONTRAST | | Isovue 125 mL. | | | | HEMODYNAMICS | | 1. Left ventricular systolic pressure 138. | | 2. Left ventricular end-diastolic pressure 29. | | 3. On pullback, aortic pressure 145/76. | | 4. There was no significant gradient across the aortic valve on pullback. | | | | CORONARY ANATOMY | | 1. The left main coronary artery bifurcates and gives rise to the left | | anterior descending and left circumflex arteries. The left main coronary | | artery is free of disease. | | 2. Left anterior descending artery is a large type 4 vessel, that wraps | | around the apex. The left anterior descending artery has very mild | | calcification and mild disease in the range of 10% proximally. | | 3. Left circumflex artery is a nondominant vessel, that gives rise to a | | large single marginal branch, and thereafter becomes a very small | | vessel. The left circumflex artery and its large marginal branch are | | free of disease. | | 4. Right coronary artery is a dominant vessel giving rise to the posterior | | descending and posterolateral arteries distally. The posterior | | descending artery is a small vessel. There is a subtotal occlusion of | | the distal right coronary artery with severe disease, in the range of | | 99%, extending into the proximal right posterolateral artery with a 70% | | proximal right posterolateral artery disease with LUIS 2 flow. | | | | ESTIMATED BLOOD LOSS | | Less than 50 mL. | | | | IMPRESSION | | 1. Two-vessel coronary artery disease with mild disease of the proximal | | left anterior descending artery and severe disease of the distal right | | coronary artery. | | 2. Successful percutaneous transluminal coronary angioplasty and stenting | | of the distal right coronary artery and the proximal right | | posterolateral artery using a 3 x 32 mm Synergy drug-eluting stent, post | | dilated using a 3 noncompliant balloon. | | | | PLAN | | 1. The patient will be continued on aspirin 81 mg for life. | | 2. Will need to continue Effient 10 mg for at least 1 year. | | 3. Will start the patient on metoprolol and high-dose Atorvastatin. | | 4. Echocardiogram. | | | | Read by BEHZAD SAMUEL MD 05/10/2017 06:06 P | | | | | + + CV CARDIAC PROCEDURE (05/09/2017 9:48 PM PDT) + + | Specimen | + + | | + + + + + | Narrative | Performed At | + + + | | | | | | | DATE OF PROCEDURE May 09, 2017 PROCEDURES PERFORMED 1. | | | Conscious sedation. 2. Right radial artery access. 3. Left heart | | | catheterization. 4. Selective left and right coronary artery | | | angiogram. 5. Successful percutaneous transluminal coronary | | | angioplasty and stenting of the distal right coronary artery and the | | | proximal right posterolateral artery using a 3 x 32 mm Synergy | | | drug-eluting stent, post dilated using a 3 noncompliant balloon. | | | INDICATIONS Acute inferior ST elevation myocardial infarction. | | | HISTORY OF PRESENT ILLNESS This is a 62-year-old male with a history | | | of hypertension, hyperlipidemia, diabetes mellitus type 2, | | | insulin-requiring, who was transferred from [facility] with | | | chest pain and inferior ST elevation myocardial infarction. The | | | patient has clear ST elevations in the anterior leads with reciprocal | | | changes. Emergent cardiac catheterization with possible percutaneous | | | coronary intervention was recommended. The procedure, risks, | | | benefits, and alternatives were discussed with the patient, and he | | | gave a verbal consent to proceed. TECHNIQUE The patient was | | | brought directly to the laboratory analyst. The patient was prepped and draped | | | in the usual sterile fashion. After informed consent was obtained, | | | the patient was prepped and draped in the usual sterile fashion. | | | Timeout for patient safety was performed. Lidocaine 1% was used for | | | local anesthesia of the skin overlying the right radial artery. The | | | right radial artery was accessed using an angiocatheter. A 6-Colombian | | | sheath was threaded into the right radial artery without difficulty. | | | Subsequently, the patient was given a cocktail containing 100 mcg | | | nitroglycerin and 1 mg of Verapamil to prevent radial artery spasm. | | | The patient had received multiple doses throughout the procedure. | | | Following sheath insertion, the patient was given a heparin bolus and | | | aspirin prior to transfer, and has been on a heparin drip. We sent a | | | blood sample for ACT. The patient had received additional heparin | | | boluses to keep ACT more than 200. Subsequently, a 5-Colombian FL3.5 | | | catheter was used for selective engagement of the left coronary | | | system, and angiographic views were obtained. A 5-Colombian JR4 guiding | | | catheter was used for selective engagement of the right coronary | | | artery, and angiographic views were obtained which showed severe | | | subtotal occlusion of the distal right coronary artery. Subsequently, | | | a BMW wire was advanced and used to cross the area of subtotal | | | occlusion, and advanced into the right posterolateral artery. There | | | was LUIS 2 flow. The lesion was predilated using a 2 x 8 mm compliant | | | Emerge balloon which was inflated up to 8 atmospheres. | | | Subsequently, the patient was given intracoronary nitroglycerin and | | | angiographic views were obtained to assess the vessel size. | | | Subsequently, a 3 x 32 mm Synergy drug-eluting stent was advanced and | | | deployed in the distal right coronary artery and proximal right | | | posterolateral artery, across the origin of the right posterior | | | descending artery, covering the whole diseased segment. The stent was | | | deployed at nominal atmospheres of 11. Subsequently, the stent was | | | post dilated using a 3 x 20 mm noncompliant Quantum balloon, which | | | was inflated up to 18 and 20 atmospheres. Post intervention | | | angiogram showed excellent results, with reduction in degree of | | | stenosis from 99% down to 0%, and increasing LUIS flow from LUIS 2 up | | | to LUIS 3 flow. Subsequently, the 6-Colombian JR4 guiding catheter was | | | advanced over the guidewire into the left ventricle. Left ventricular | | | pressures and pullback pressures were obtained. All catheters and | | | guidewires were removed. The patient had received a double bolus of | | | Integrilin during the procedure. At the end of the procedure, the | | | patient was given a loading dose of Effient 60 mg. The patient | | | tolerated the procedure well, without complications. RESULTS | | | TOTAL CONTRAST Isovue 125 mL. HEMODYNAMICS 1. Left ventricular | | | systolic pressure 138. 2. Left ventricular end-diastolic pressure 29. | | | 3. On pullback, aortic pressure 145/76. 4. There was no significant | | | gradient across the aortic valve on pullback. CORONARY ANATOMY | | | 1. The left main coronary artery bifurcates and gives rise to the left | | | anterior descending and left circumflex arteries. The left main | | | coronary artery is free of disease. 2. Left anterior descending | | | artery is a large type 4 vessel, that wraps around the apex. The left | | | anterior descending artery has very mild calcification and mild | | | disease in the range of 10% proximally. 3. Left circumflex artery is | | | a nondominant vessel, that gives rise to a large single marginal | | | branch, and thereafter becomes a very small vessel. The left | | | circumflex artery and its large marginal branch are free of disease. | | | 4. Right coronary artery is a dominant vessel giving rise to the | | | posterior descending and posterolateral arteries distally. The | | | posterior descending artery is a small vessel. There is a subtotal | | | occlusion of the distal right coronary artery with severe disease, in | | | the range of 99%, extending into the proximal right posterolateral | | | artery with a 70% proximal right posterolateral artery disease with | | | LUIS 2 flow. ESTIMATED BLOOD LOSS Less than 50 mL. IMPRESSION | | | 1. Two-vessel coronary artery disease with mild disease of the | | | proximal left anterior descending artery and severe disease of the | | | distal right coronary artery. 2. Successful percutaneous | | | transluminal coronary angioplasty and stenting of the distal right | | | coronary artery and the proximal right posterolateral artery using a | | | 3 x 32 mm Synergy drug-eluting stent, post dilated using a 3 | | | noncompliant balloon. PLAN 1. The patient will be continued on | | | aspirin 81 mg for life. 2. Will need to continue Effient 10 mg for at | | | least 1 year. 3. Will start the patient on metoprolol and high-dose | | | Atorvastatin. 4. Echocardiogram. Read by BEHZAD SAMUEL MD | | | 05/10/2017 06:06 P | | + + + + + | Procedure Note | + + | Berry Goldstein - 03/12/2019 3:32 PM PDT | | | | | | DATE OF PROCEDURE | | May 09, 2017 | | | | PROCEDURES PERFORMED | | 1. Conscious sedation. | | 2. Right radial artery access. | | 3. Left heart catheterization. | | 4. Selective left and right coronary artery angiogram. | | 5. Successful percutaneous transluminal coronary angioplasty and stenting | | of the distal right coronary artery and the proximal right | | posterolateral artery using a 3 x 32 mm Synergy drug-eluting stent, post | | dilated using a 3 noncompliant balloon. | | | | INDICATIONS | | Acute inferior ST elevation myocardial infarction. | | | | HISTORY OF PRESENT ILLNESS | | This is a 62-year-old male with a history of hypertension, hyperlipidemia, | | diabetes mellitus type 2, insulin-requiring, who was transferred from . | | [facility] with chest pain and inferior ST elevation myocardial | | infarction. The patient has clear ST elevations in the anterior leads with | | reciprocal changes. Emergent cardiac catheterization with possible | | percutaneous coronary intervention was recommended. The procedure, risks, | | benefits, and alternatives were discussed with the patient, and he gave a | | verbal consent to proceed. | | | | TECHNIQUE | | The patient was brought directly to the laboratory analyst. The patient was prepped | | and draped in the usual sterile fashion. After informed consent was | | obtained, the patient was prepped and draped in the usual sterile fashion. | | Timeout for patient safety was performed. Lidocaine 1% was used for local | | anesthesia of the skin overlying the right radial artery. The right radial | | artery was accessed using an angiocatheter. A 6-Colombian sheath was threaded | | into the right radial artery without difficulty. Subsequently, the patient | | was given a cocktail containing 100 mcg nitroglycerin and 1 mg of Verapamil | | to prevent radial artery spasm. The patient had received multiple doses | | throughout the procedure. | | | | Following sheath insertion, the patient was given a heparin bolus and | | aspirin prior to transfer, and has been on a heparin drip. We sent a blood | | sample for ACT. The patient had received additional heparin boluses to keep | | ACT more than 200. Subsequently, a 5-Colombian FL3.5 catheter was used for | | selective engagement of the left coronary system, and angiographic views | | were obtained. A 5-Colombian JR4 guiding catheter was used for selective | | engagement of the right coronary artery, and angiographic views were | | obtained which showed severe subtotal occlusion of the distal right | | coronary artery. Subsequently, a BMW wire was advanced and used to cross | | the area of subtotal occlusion, and advanced into the right posterolateral | | artery. There was LUIS 2 flow. The lesion was predilated using a 2 x 8 mm | | compliant Emerge balloon which was inflated up to 8 atmospheres. | | | | Subsequently, the patient was given intracoronary nitroglycerin and | | angiographic views were obtained to assess the vessel size. Subsequently, a | | 3 x 32 mm Synergy drug-eluting stent was advanced and deployed in the | | distal right coronary artery and proximal right posterolateral artery, | | across the origin of the right posterior descending artery, covering the | | whole diseased segment. The stent was deployed at nominal atmospheres of | | 11. Subsequently, the stent was post dilated using a 3 x 20 mm noncompliant | | Quantum balloon, which was inflated up to 18 and 20 atmospheres. | | | | Post intervention angiogram showed excellent results, with reduction in | | degree of stenosis from 99% down to 0%, and increasing LUIS flow from LUIS | | 2 up to LUIS 3 flow. Subsequently, the 6-Colombian JR4 guiding catheter was | | advanced over the guidewire into the left ventricle. Left ventricular | | pressures and pullback pressures were obtained. All catheters and | | guidewires were removed. The patient had received a double bolus of | | Integrilin during the procedure. At the end of the procedure, the patient | | was given a loading dose of Effient 60 mg. The patient tolerated the | | procedure well, without complications. | | | | RESULTS | | TOTAL CONTRAST | | Isovue 125 mL. | | | | HEMODYNAMICS | | 1. Left ventricular systolic pressure 138. | | 2. Left ventricular end-diastolic pressure 29. | | 3. On pullback, aortic pressure 145/76. | | 4. There was no significant gradient across the aortic valve on pullback. | | | | CORONARY ANATOMY | | 1. The left main coronary artery bifurcates and gives rise to the left | | anterior descending and left circumflex arteries. The left main coronary | | artery is free of disease. | | 2. Left anterior descending artery is a large type 4 vessel, that wraps | | around the apex. The left anterior descending artery has very mild | | calcification and mild disease in the range of 10% proximally. | | 3. Left circumflex artery is a nondominant vessel, that gives rise to a | | large single marginal branch, and thereafter becomes a very small | | vessel. The left circumflex artery and its large marginal branch are | | free of disease. | | 4. Right coronary artery is a dominant vessel giving rise to the posterior | | descending and posterolateral arteries distally. The posterior | | descending artery is a small vessel. There is a subtotal occlusion of | | the distal right coronary artery with severe disease, in the range of | | 99%, extending into the proximal right posterolateral artery with a 70% | | proximal right posterolateral artery disease with LUIS 2 flow. | | | | ESTIMATED BLOOD LOSS | | Less than 50 mL. | | | | IMPRESSION | | 1. Two-vessel coronary artery disease with mild disease of the proximal | | left anterior descending artery and severe disease of the distal right | | coronary artery. | | 2. Successful percutaneous transluminal coronary angioplasty and stenting | | of the distal right coronary artery and the proximal right | | posterolateral artery using a 3 x 32 mm Synergy drug-eluting stent, post | | dilated using a 3 noncompliant balloon. | | | | PLAN | | 1. The patient will be continued on aspirin 81 mg for life. | | 2. Will need to continue Effient 10 mg for at least 1 year. | | 3. Will start the patient on metoprolol and high-dose Atorvastatin. | | 4. Echocardiogram. | | | | Read by BEHZAD SAMUEL MD 05/10/2017 06:06 P | | | | | + + Activated clotting time (05/09/2017 9:41 PM PDT) + + + + + + | Component | Value | Ref Range | Performed | Pathologist | | | | | At | Signature | + + + + + + | Activated | 219 (H)Comment: Testing | 74 - 137 | EXTERNAL | | | Clotting | performed at [facility];888 | seconds | LAB | | | time, POC | [address];[place], [place] | | | | | | [address] | | | | + + + + + + + + | Specimen | + + | | + + + +---------+ + + | Performing | Address | City/State/Zipcode | Phone Number | | Organization | | | | + +---------+ + + | EXTERNAL LAB | | | | + +---------+ + + Activated clotting time (05/09/2017 9:22 PM PDT) + + + + + + | Component | Value | Ref Range | Performed | Pathologist | | | | | At | Signature | + + + + + + | Activated | 357 (H)Comment: Testing | 74 - 137 | EXTERNAL | | | Clotting | performed at [facility];888 | seconds | LAB | | | time, POC | [address];[place], [place] | | | | | | [address] | | | | + + + + + + + + | Specimen | + + | | + + + +---------+ + + | Performing | Address | City/State/Zipcode | Phone Number | | Organization | | | | + +---------+ + + | EXTERNAL LAB | | | | + +---------+ + + Activated clotting time (05/09/2017 9:10 PM PDT) + + + + + + | Component | Value | Ref Range | Performed | Pathologist | | | | | At | Signature | + + + + + + | Activated | 147 (H)Comment: Testing | 74 - 137 | EXTERNAL | | | Clotting | performed at [facility];888 | seconds | LAB | | | time, POC | [address];[place], [place] | | | | | | [address] | | | | + + + + + + + + | Specimen | + + | | + + + +---------+ + + | Performing | Address | City/State/Zipcode | Phone Number | | Organization | | | | + +---------+ + + | EXTERNAL LAB | | | | + +---------+ + + documented in this encounter Visit Diagnoses Not on filedocumented in this encounter
--- OUTSIDE RECORDS SUMMARY | ~2020-02-27 | XMS | Encounter Summary ---
Demographics + + + | Address | [address] | | | [place] [address] | + + + | Home Phone | | + + + | Preferred Language | Unknown | + + + | Marital Status | | + + + | Hindu Affiliation | Unknown | + + + | Race | Unknown | + + + | Ethnic Group | Unknown | + + + Author + + + | Author | [facility] | | | and [place] | + + + | Organization | [facility] | | | and [place] | + + + | Address | Unknown | + + + | Phone | Unavailable | + + + Care Team Providers + +------+ + | Care Ultrasound Manager Name | Role | Phone | + +------+ + | Luz Gaitan MD | PCP | | + +------+ + Encounter Details +--------+ + + + + | Date | Type | Department | Care Team | Description | +--------+ + + + + | 05/17/ | Orders Only | [facility] | Conversion | | | 2016 | | CONVERSION [address]P [address] | Transaction, | | | | | [address] | Provider Unknown | | | | | [place], [place] | [phone] | | | | | [address] | | | | | | [phone] | | | +--------+ + + + [...]
[2020-02-27] MEDS ORDERED: NORCO 5-325 TA1 EACH PO (09:52)
== END 2020-02-27 10:10 | disposition home or self-care (01) ==
LOC: ED 08:53
DX: S46.912A Strain of unspecified muscle, fascia and tendon at shoulder and upper arm level, left arm, initial encounter (principal); I10 Essential (primary) hypertension; K21.9 Gastro-esophageal reflux disease without esophagitis; E11.9 Type 2 diabetes mellitus without complications; Z79.899 Other long term (current) drug therapy; X58.XXXA Exposure to other specified factors, initial encounter
CPT/HCPCS: 73030; 99283-25